=== PATIENT | female | born 1965 | race Two or more races ===

== ENCOUNTER 2024-10-13 17:43 | Emergency (ER) | payer BC, MEDICAID ==
[~2024-10-13] VITALS: Ht 162.6 cm; Wt 103.8 kg
--- NOTE | 2024-10-13 19:47 | DVH ---
INDICATION: Back pain COMPARISON: None TECHNIQUE: 2 views of the thoracic spine were obtained. FINDINGS: There are 12 rib-bearing thoracic type vertebral bodies. The pedicles are intact. The vertebral body heights are maintained. No acute fracture. Visualized portions of the lungs are clear. Cholecystect tiffanie clips are seen. IMPRESSION: 1. No acute fracture or traumatic malalignment.
[2024-10-13] MEDS: KETOROLAC TROMETH 60MG/2ML VIAL IM ONE (19:58)
--- NOTE | 2024-10-13 20:05 | ED.PDOC ---
Back pain HPI HPI Comments This is a 59 year-old female who presents to the ED with a chief complaint of back pain to the R lumbar region as of months ago. Patient states the back pain is constant and radiates to the right chest. Patient additionally reports that the back pain is exacerbated with R shoulder movement. Patient reports having a torn rotator cuff at the R shoulder region. Patient denies any previous trauma or injury to the back area. Patient has no further complaints at this time and otherwise denies further associated symptoms of N/V/D, dysuria, hematuria, palpitations, fever, chills, or dizziness. Chief Complaint: Back Pain Time Seen by MD: 19:53 Primary Care Provider: ARPITA Rodriguez Notes: Nurses Notes, Medications, Allergies Allergies: Coded Allergies: NO KNOWN ALLERGIES (Unverified , 06/14/10) Information Source: Patient Mode of Arrival: Ambulatory Timing: Months Duration: Since onset Location of Back pain: (R) Lumbar Severity: Moderate Prehospital treatment: None Onset: Spontaneous Associated signs and symptoms: Other (back pain and chest pain ) Past Medical History PAST MEDICAL HISTORY: Denies Surgical History: Denies all surgeries COMMUNITY HEALTH COUNSELOR History: No Pertinent COMMUNITY HEALTH COUNSELOR History Family History Family History: Reviewed,noncontributory to illness, No family hx of Cancer, No family hx of DM, No family hx of Heart wan, No family hx of HTN, No family hx ofKidney wan, No family hx of Liver wan, No family hx of Lung wan, No family hx of Stroke Social History Smoker: Non-Smoker Alcohol: Occasionally Drugs: Denies Drug Use Lives In: Home Constitutional: denies: chills, diaphoresis, fatigue, fever, malaise, sweats, weakness, others EENTM: denies: blurred vision, double vision, ear bleeding, ear discharge, ear drainage, ear pain, ear ringing, eye pain, eye redness, hearing loss, mouth pain, mouth swelling, nasal discharge, nose bleeding, nose congestion, nose pain, photophobia, tearing, throat pain, throat swelling, voice changes, others Respiratory: denies: cough, hemoptysis, orthopnea, SOB at rest, shortness of breath, SOB with excertion, stridor, wheezing, others Cardiovascular: reports: chest pain; denies: dizzy spells, diaphoresis, Dyspnea on exertion, edema, irregular heart beat, left arm pain, lightheadedness, palpitations, PND, syncope, others Gastrointestinal: denies: abdomen distended, abdominal pain, blood streaked bowels, constipated, diarrhea, dysphagia, difficulty swallowing, hematemesis, melena, nausea, poor appetite, poor fluid intake, rectal bleeding, rectal pain, vomiting, others Genitourinary: denies: abnormal vagina bleeding, burning, dyspareunia, dysuria, flank pain, frequency, hematuria, incontinence, pain, , vagina discharge, urgency, others Neurological: denies: dizziness, fainting, headache, left sided numbness, left sided weakness, numbness, paresthesia, pre-existing deficit, right sided numbness, right sided weakness, seizure, speech problems, tingling, tremors, weakness, others Musculoskeletal: reports: back pain; denies: gout, joint pain, joint swelling, muscle pain, muscle stiffness, neck pain, others Integumetry: denies: bruises, change in color, change in hair/nails, dryness, laceration, lesions, lumps, rash, wounds, others Allergic/Immunocompromised: denies: Difficulty Healing, Frequent Infections, Hives, Itching, others Hematologic/Lymphatic: denies: anemia, blood clots, easy bleeding, easy bruising, swollen glands, others Endocrine: denies: excessive hunger, excessive sweating, excessive thirst, excessive urination, flushing, intolerance to cold, intolerance to heat, unexplained weight gain, unexplained weight loss, others Psychiatric: denies: anxiety, bipolar disorder, depression, hopeless, panic disorder, schizophrenia, sleepless, suicidal, others All Other Systems: Reviewed and Negative Was a procedure done? Was a procedure done?: No Back Pain Differential Dx Differential Diagnosis: Fracture, Musculoskeletal Pain X-Ray, Labs, Meds, VS Vital Signs Date Time Temp Pulse Resp B/P (MAP) Pulse Ox O2 Delivery O2 Flow Rate FiO2 10/13/24 17:45 98.9 90 19 133/72 97 98.9 Current Medications Medications (Trade) Dose Ordered Sig/Crystal Route Start Time Stop Time Status Last Admin Ketorolac Tromethamine (Toradol Injection) 60 mg ONCE ONCE IM 10/13/24 19:30 10/13/24 19:31 DC 10/13/24 19:[address] [address] Ph: [phone] DIAGNOSTIC IMAGING Diagnostic Imaging Report : [id number] Signed PATIENT: HUSSEIN BOURGEOISCCT: [id number] UNIT: [id number] : 1965 LOC: ER ROOM / BED: / AGE / SEX: 59 / F ADM STATUS: REG ER SERVICE 1823 ORDERING PHYSICIAN: STEFANY RUSSO PROCEDURE(s): THOSP - SPINE THORACIC 2VIEW REASON: pain ORDER NUMBER(s): [id number], ACCESSION NUMBER(s): [id number] INDICATION: Back pain COMPARISON: None TECHNIQUE: 2 views of the thoracic spine were obtained. FINDINGS: There are 12 rib-bearing thoracic type vertebral bodies. The pedicles are intact. The vertebral body heights are maintained. No acute fracture. Visualized portions of the lungs are clear. Cholecystectomy clips are seen. IMPRESSION: 1. No acute fracture or traumatic malalignment. Images Reviewed?: Images reviewed and evaluated by me Time of 1ST Reevaluation: 20:38 Reevaluation 1ST: Unchanged Time of 2ND Reevaluation: 20:43 Reevaluation 2ND: Improved Patient Education/Counseling: Diagnosis, Treatment, Need For Follow Up Family Education/Counseling: No Family Present Medical Screening: No EMC Exist At This Time SEPSIS Sepsis Screen Date sepsis recognized/suspect: Oct 13, 2024 Time Sepsis recognized/suspect: 1744 Recent Procedure: No On Antibiotic Therapy: No Respiratory Rate >20: No Heart Rate >90: No Temp<36 C (96.8 F) or >38.3 C: No SBP <90 or MAP <65 mmHG: No New Acute Mental Status Change: No Is the patient on CPAP, BIPAP,: No Physician Orders Spine Thoracic 2view (10/13/24 18:23) Chest Two Views Routine (10/13/24 19:03) Vital Signs Date Time Temp Pulse Resp B/P (MAP) Pulse Ox O2 Delivery O2 Flow Rate FiO2 10/13/24 17:45 98.9 90 19 133/72 97 98.9 Medications Medications Dose Ordered Sig/Crystal Route Start Time Stop Time Status Last Admin Dose Admin Ketorolac Tromethamine 60 mg ONCE ONCE IM 10/13/24 19:30 10/13/24 19:31 DC 10/13/24 19:58 Departure 1 Departure Time of Disposition: 20:41 Impression: Primary Impression: Thoracic myofascial strain Qualified Codes: S29.019A - Strain of muscle and tendon of unspecified wall of thorax, initial encounter Disposition: HOME / SELF CARE / HOMELESS Condition: Stable e-Prescriptions Methylprednisolone (Medrol Dosepak) 4 Mg Jose 4 MG PO UD for 6 Days, #21 TAB UAD Prov: ZENOBIA RUSSOTeresa OROZCO 10/13/24 Tizanidine Hydrochloride (Tizanidine Hcl) 4 Mg Tab 4 MG PO TID PRN for 5 Days, #15 TAB Prov: STEFANY RUSSO 10/13/24 Discharged With: Self Critical Care Note Critical Care Time?: No Stability Stability form required: No Heart Score Heart Score: Heart Score Response (Comments) Value History N/A 0 EKG N/A 0 Age N/A 0 Risk Factors N/A 0 Troponin N/A 0 Total 0 I personally scribed for ER ([email or web address]) on 10/13/24 at 20:04. Electronically submitted by Cynthia Adamson ([employer]). I personally scribed for ER ([email or web address]) on 10/13/24 at 20:05. Electronically submitted by Cynthia Adamson ([employer]). ER Oct 13, 2024 20:04 STEFANY RUSSO [facility] Oct 13, 2024 20:44
--- NOTE | 2024-10-13 20:10 | DVH ---
XY CHEST TWO VIEWS ROUTINE CLINICAL HISTORY: LEFT CHEST PAIN AROUND TO BACK COMPARISON: None TECHNIQUE: Frontal and lateral view of the chest was obtained FINDINGS: Lines and Tubes: None Lungs: Patchy hazy opacification of the right lateral upper to mid lung zone. Pleura: No effusion. No pneumothorax. Cardiomediastinal contours: Unremarkable Bones: No acute osseous abnormality. IMPRESSION: Patchy hazy opacification of the right lateral upper to mid lung zone which may represent pneumonia i n the right clinical setting. Follow-up to resolution is recommended to exclude a mass.
[2024-10-13 20:43] VITALS: BP 122/62; PULSE 73; RESP 16; TEMP 97.9; O2SAT 97
[2024-10-13] MEDS ORDERED: TIZA-142 PO (20:43)
[2024-10-13] MEDS ORDERED: METH4PAK PO (20:43)
== END 2024-10-13 21:05 | disposition home or self-care (01) ==
LOC: ER 17:43
DX: S29.012A Strain of muscle and tendon of back wall of thorax, initial encounter (principal); F10.90 Alcohol use, unspecified, uncomplicated; X58.XXXA Exposure to other specified factors, initial encounter; Y93.89 Activity, other specified; Y92.89 Other specified places as the place of occurrence of the external cause; Y99.8 Other external cause status; Y90.9 Presence of alcohol in blood, level not specified
CPT/HCPCS: 71046; 72070; 96372; 99284; J1885

== ENCOUNTER 2024-10-27 15:54 | Inpatient (IN) | payer MEDICAID ==
[~2024-10-27] VITALS: Ht 172.7 cm; Wt 111.6 kg
--- NOTE | 2024-10-27 16:50 | DVH ---
CHEST RADIOGRAPH Indication: sob Technique: Single frontal view of the chest was obtained Comparison: XY CHEST TWO VIEWS ROUTINE on DOS: 10/13/24 FINDINGS: Lines and Tubes: None Lungs: Development of bibasilar areas of atelectasis are noted when compared to 10/13/2024. Pleura: No effusion. No pneumothorax. Cardiomediastinal contours: Unremarkable Bones: No acute osseous abnormality. IMPRESSION: 1. Development of bibasilar areas of atelectasis are noted when compared to
[2024-10-27] MEDS: IPRATROPIUM BROM 0.5 MG/2.5ML INH SOL NEB ONE (17:00)
[2024-10-27] MEDS: ALBUTEROL SULF 2.5 MG/0.5ML(0.5%) NEB SOLN NEB ONE (17:00)
--- NOTE | 2024-10-27 17:13 | ED.PDOC ---
SOB-HPI HPI Comments 59y F with a history of asthma presents to the ED for chief complaint of shortness of breath. Pt states she was at 2 weeks ago for similar complaint, underwent chest x-ray and was diagnosed with thoracic back strain. Pt states she saw PCP recently, had repeat chest x-ray, was diagnosed with pneumonia, and was prescribed Keflex. She was also recently prescribed clindamycin after undergoing a dental procedure. She states she is still taking both antibiotics, however has continued to have cough, shortness of breath and thoracic pain with inspiration and came to the ED for further evaluation. Patient was noted to be hypoxic on room air at triage and was placed on nasal cannula oxygen, with otherwise stable vitals including temp of 98.1 F, heart rate 98, rr 20, and BP of 137/78. Chief Complaint: Shortness of Breath Time Seen by MD: 17:43 Primary Care Provider: ARPITA Rodriguez notes: Medications, Allergies Information Source: Patient Mode of Arrival: Ambulatory Brought in by: self Past Medical History PAST MEDICAL HISTORY: Asthma Surgical History (Other): Tibial surgery LICENSED OCCUPATIONAL THERAPIST History: No Pertinent LICENSED OCCUPATIONAL THERAPIST History Family History Family History: Reviewed,noncontributory to illness, No family hx of Cancer, No family hx of DM, No family hx of Heart wan, No family hx of HTN, No family hx ofKidney wan, No family hx of Liver wan, No family hx of Lung wan, No family hx of Stroke Social History Smoker: Non-Smoker Alcohol: Occasionally Drugs: Denies Drug Use Lives In: Home All Other Systems: Reviewed and Negative (see HPI) Physical Exam General Appearance: Mild Distress HEENT: Other (Pupils and face symmetric. Moist mucous membranes.) Neck: Full Range of Motion, Normal Inspection Respiratory: Decreased Breath Sounds, No Accessory Muscle Use, Respiratory Distress, Other (Becomes short of breath with speaking) Cardiovascular: No Edema, No JVD, Regular Rate/Rhythm Breast Exam: Deferred Gastrointestinal: Non Tender, Soft Genitalia: Deferred Pelvic: Deferred Rectal: Deferred Extremities: Normal inspection, Normal range of motion, Non-tender, No pedal edema Neurologic: Alert (Oriented x4), Normal Affect, Normal Mood, Other (Ambulatory) Cerebellar Function: NOT DONE Reflexes: NOT DONE Skin: Dry, Pallor, Warm Lymphatic: NOT DONE Was a procedure done? Was a procedure done?: No Differential Dx Differential Diagnosis: Asthma, Bronchitis, CHF, COPD, Myocardial infarction, Pneumonia, Pulmonary Embolism, Respiratory Distress, URI Comments influenza A and B, COVID, X-Ray, Labs, Meds, VS Vital Signs Date Time Temp Pulse Resp B/P (MAP) Pulse Ox O2 Delivery O2 Flow Rate FiO2 10/27/24 17:38 20 92 Nasal Cannula* 2 28 10/27/24 16:05 98.1 98 20 137/78 92 98.1 Lab Test 10/27/24 18:59 10/27/24 17:39 Range/Units Troponin I High Sensitivity < 3 L < 3 L </=34 ng/L White Blood Count 12.8 H 4.4-10.8 10^3/uL Red Blood Count 3.99 L 4.0-5.20 10^6/uL Hemoglobin 11.9 L 12.2-16.2 g/dL Hematocrit 35.9 L 36.0-46.0 % Mean Corpuscular Volume 90.0 80.0-100.0 fL Mean Corpuscular Hemoglobin 29.7 28.0-32.0 pg Mean Corpuscular Hemoglobin Concent 33.0 32.0-36.0 g/dL Red Cell Distribution Width 13.2 11.8-14.3 % Platelet Count 439 140-450 10^3/uL Mean Platelet Volume 8.3 6.9-10.8 fL Neutrophils (%) (Auto) 83.5 H 37.0-80.0 % Lymphocytes (%) (Auto) 8.6 L 10.0-50.0 % Monocytes (%) (Auto) 6.3 0.0-12.0 % Eosinophils (%) (Auto) 1.0 0.0-7.0 % Basophils (%) (Auto) 0.6 0.0-2.0 % Neutrophils # (Auto) 10.7 H 1.6-8.6 10 ^3/uL Lymphocytes # (Auto) 1.1 0.4-5.4 10 ^3/uL Monocytes # (Auto) 0.8 0-1.3 10 ^3/uL Eosinophils # (Auto) 0.1 0-0.8 10 ^3/uL Basophils # (Auto) 0.1 0-0.2 10 ^3/uL Nucleated Red Blood Cells 0.0 % D-Dimer, Quantitative 2.11 H 0.0-0.49 mg/L FEU Sodium Level 136 136-145 mmol/L Potassium Level 4.0 3.5-5.1 mmol/L Chloride Level 101 98-107 mmol/L Carbon Dioxide Level 23 20-31 mmol/L Anion Gap 12 5-15 Blood Urea Nitrogen 7 L 9-23 mg/dL Creatinine 0.73 0.550-1.02 mg/dL Glomerular Filtration Rate Calc 96 >90 mL/min BUN/Creatinine Ratio 9.6 L 10.0-20.0 Serum Glucose 125 H 74-106 mg/dL Lactic Acid Level 1.1 0.4-2.0 mmol/L Calcium Level 9.4 8.7-10.4 mg/dL B-Type Natriuretic Peptide 14.43 0-100 pg/mL Current Medications Medications (Trade) Dose Ordered Sig/Crystal Route Start Time Stop Time Status Last Admin Methylprednisolone Sodium Succinate (Solu Medrol) 125 mg ONCE ONCE IV 10/27/24 17:00 10/27/24 17:19 DC 10/27/24 20:12 Levofloxacin/ Dextrose 100 ml @ 100 mls/hr ONCE ONCE IV 10/27/24 17:00 10/27/24 17:59 DC 10/27/24 20:12 [place] [address] Ph: [phone] DIAGNOSTIC IMAGING Diagnostic Imaging Report : [id number] Signed PATIENT: HUSSEIN BOURGEOISCCT: [id number] UNIT: [id number] : 1965 LOC: ER ROOM / BED: / AGE / SEX: 59 / F ADM STATUS: REG ER SERVICE 1610 ORDERING PHYSICIAN: ANN DOOLEY MD PROCEDURE(s): CXRP - CHEST PORTABLE REASON: sob ORDER NUMBER(s): [id number], ACCESSION NUMBER(s): [id number] CHEST RADIOGRAPH Indication: sob Technique: Single frontal view of the chest was obtained Comparison: XY CHEST TWO VIEWS ROUTINE on DOS: 10/13/24 FINDINGS: Lines and Tubes: None Lungs: Development of bibasilar areas of atelectasis are noted when compared to 10/13/2024. Pleura: No effusion. No pneumothorax. Cardiomediastinal contours: Unremarkable Bones: No acute osseous abnormality. IMPRESSION: 1. Development of bibasilar areas of atelectasis are noted when compared to ATED BY: CHRISTOPHER DEE Jr., DO DICTATED DATE/TIME: 10/27/241647 SIGNED BY: CHRISTOPHER DEE Jr., SIGNED DATE/TIME: 10/27/241647 CC: X-Ray, Labs, Meds, VS Comment 59-year-old female with a history of asthma complaining of cough, pleuritic thoracic pain and shortness a breath despite taking to oral antibiotics and using her inhaler at home Vitals remarkable for hypoxia-92% on 2 L nasal cannula Rhythm strip independently interpreted by me: Sinus rhythm, rate 88, no ectopy. Chest x-ray shows bibasilar atelectasis CT angio chest results pending CBC remarkable for WBC 12.8, basic metabolic panel, lactate, BNP, troponin unremarkable. D-dimer elevated at 2.11 Patient treated with the following in the ED: Albuterol 5 mg/Atrovent 0.5 mg nebulized, Solu-Medrol 125 mg IV, Levaquin 500 mg IV. On re-evaluation, patient states she feels somewhat better. Oxygen saturation is 92% on 2 L nasal cannula and she does not appear to be in respiratory distress. Plan is to admit the patient for respiratory support and IV antibiotics, and anticoagulation versus thrombectomy if CT positive for PE. Time of 1ST Reevaluation: 20:58 Reevaluation 1ST: Improved Patient Education/Counseling: Diagnosis, Treatment Family Education/Counseling: No Family Present SEPSIS Sepsis Screen Date sepsis recognized/suspect: Oct 27, 2024 Time Sepsis recognized/suspect: 1550 Recent Procedure: No On Antibiotic Therapy: No Respiratory Rate >20: No Heart Rate >90: Yes Temp<36 C (96.8 F) or >38.3 C: No SBP <90 or MAP <65 mmHG: No New Acute Mental Status Change: No Is the patient on CPAP, BIPAP,: No SEPSIS EXCLUSION NOTE: Sepsis Exclusion Note: Patient presents with SIRS criteria, but the SIRS response is attributed to [respiratory failure/asthma exacerbation ], not sepsis. Sepsis bundle is not initiated at this time, due to this reason. Further management will focus on the treatment of the above condition (s). Physician Orders Chest Portable (10/27/24 16:10) Urinalysis (10/27/24 16:10) Electrocardigram (10/27/24 16:10) Blood Culture (10/27/24 16:10) Rapid Influenza A&B (10/27/24 16:10) Rapid Strep Screen - Throat (10/27/24 16:10) Covid19 Antigen Sandra (10/27/24 ) Ct Angio Chest Contrast (10/27/24 20:55) Vital Signs Date Time Temp Pulse Resp B/P (MAP) Pulse Ox O2 Delivery O2 Flow Rate FiO2 10/27/24 17:38 20 92 Nasal Cannula* 2 28 10/27/24 16:05 98.1 98 20 137/78 92 98.1 Laboratory Tests Test 10/27/24 17:39 Lactic Acid Level 1.1 mmol/L (0.4-2.0) White Blood Count 12.8 10^3/uL (4.4-10.8) H Medications Medications Dose Ordered Sig/Crystal Route Start Time Stop Time Status Last Admin Dose Admin Levofloxacin/ Dextrose 100 ml @ 100 mls/hr ONCE ONCE IV 10/27/24 17:00 10/27/24 17:59 DC 10/27/24 20:12 Methylprednisolone Sodium Succinate 125 mg ONCE ONCE IV 10/27/24 17:00 10/27/24 17:19 DC 10/27/24 20:12 Departure 1 Departure Time of Disposition: 20:59 Impression: Primary Impression: Acute hypoxic respiratory failure Additional Impressions: Asthma exacerbation Pneumonia Disposition: ADMITTED INPATIENT Admit to: Tele Condition: Guarded Critical Care Note Critical Care Time?: Yes (30 min-critical care time only) Critical care comment: Critical care time including multiple bedside re-evaluations, review of lab and imaging studies, and discussion of the case with the admitting provider. Patient is high risk for respiratory decompensation. Stability Stability form required: No Heart Score Heart Score: Heart Score Response (Comments) Value History N/A 0 EKG N/A 0 Age N/A 0 Risk Factors N/A 0 Troponin N/A 0 Total 0 I personally scribed for ANN DOOLEY MD ([email or web address]) on 10/27/24 at 17:13. Electronically submitted by Salazar Restrepo ([email or web address]). I personally scribed for ANN DOOLEY MD ([email or web address]) on 10/27/24 at 17:45. Electronically submitted by Salazar Restrepo ([facility]). ANN DOOLEY MD Oct 27, 2024 17:13
[2024-10-27 18:09] LABS: Hematocrit 35.9 % (36.0-46.0); Hemoglobin 11.9 g/dL (12.2-16.2); Mean Corpuscular Hemoglobin 29.7 pg (28.0-32.0); Mean Corpuscular Volume 90.0 fL (80.0-100.0); Nucleated Red Blood Cells % 0.0 %
[2024-10-27 18:22] LABS: Chloride 101 mmol/L (98-107); Potassium 4.0 mmol/L (3.5-5.1)
[2024-10-27 18:23] LABS: Anion Gap 12 (5-15); Calcium 9.4 mg/dL (8.7-10.4); Carbon Dioxide 23 mmol/L (20-31)
[2024-10-27 18:25] LABS: Sodium 136 mmol/L (136-145)
[2024-10-27 18:28] LABS: BUN/Creatinine Ratio 9.6 (10.0-20.0)
[2024-10-27 18:30] LABS: Blood Urea Nitrogen 7 mg/dL (9-23); Glucose 125 mg/dL (74-106)
[2024-10-27] MEDS: methylPREDNISolone SOD SUCC 125 MG/2 ML VL IV ONE (20:12)
[2024-10-27] MEDS: IOHEXOL 350 MG/ML 100ML IJ ONE (22:16)
--- NOTE | 2024-10-27 23:01 | DVH ---
CLINICAL HISTORY: Short of breath, hypoxic, elevated D-dimer, rule out PE TECHNIQUE: CT angiogram of the chest was performed with and without intravenous contrast. 3D reconst ructed MIP images were created and archived on the PACS system under concurrent radiologist supervisi on. This exam was performed according to our departmental dose optimization program. Up-to-date CT eq uipment and radiation dose reduction techniques are utilized as appropriate. CTDI 14.8 DLP 946.2 COMPARISON: None FINDINGS: Evaluation is limited due to artifact from patient arm positioning. Evaluations further limited due t o patient breathing artifact. There was adequate opacification of the pulmonary artery tree. There is no filling defect to suggest acute pulmonary embolism. The thoracic aorta is normal in course and caliber. There are [] atherosclerotic calcifications. The heart is normal in size. No pericardial effusion is seen. No enlarged mediastinal, hilar, or axillary lymph node is present. The central airways are patent. There is no bronchiectasis. There is no suspicious pulmonary nodule or area of consolidation. There is a 6.8 x 3.8 cm lytic destructive soft tissue mass inseparable from the posterior lateral rig ht fifth rib. This mass also slightly erodes the posterior lateral right 6th rib. This mass either or iginates from the bone or from the adjacent pleura. There is an associated trace right pleural effusi on. There are bands of right upper, middle, and lower lobe atelectasis. There is mild lingular atelec tasis. There is no left pleural effusion. The visualized upper abdomen demonstrates post cholycystectomy changes. IMPRESSION: Limited exam with no definite evidence for acute pulmonary embolism. 6.8 x 3.8 cm destructive lytic soft tissue mass centered at the posterolateral right fifth rib with s light involvement of the posterolateral right 6th rib. It is unclear whether this mass originates fro m the bone or the adjacent pleural cavity. Finding is highly concerning for a malignant process. Trace right pleural effusion.
[2024-10-28] VITALS (9 sets, daily range): BP systolic 113–141; BP diastolic 55–81; PULSE 80–96; RESP 16–20; TEMP 98–98.3; O2SAT 91–100
[2024-10-28] MEDS ORDERED: DOCUSATE SOD 100 MG CAP PO PRN (02:30)
[2024-10-28] MEDS ORDERED: ONDANSETRON HCL 4 MG/2 ML VIAL IV PRN (02:30)
[2024-10-28] MEDS ORDERED: SODIUM CHLORIDE 0.9% 500 ML IV ONE (02:45)
--- NOTE | 2024-10-28 03:01 | DVHHPRES ---
History of Present Illness Resident Creating Document: PREMA MERAZ RESIDENT History of Present Illness History of Present Illness (HPI): Iraida Kellogg is a 59-year-old female with a known history of hyperlipidemia who presented with complaints of persistent pain located on the back side of her chest, accompanied by shortness of breath that has been ongoing for the past two weeks. She reports that the shortness of breath initially began approximately six months ago, occurring intermittently during that time. The back pain is described as sharp in nature, rated 8 out of 10 in intensity, and radiates toward the sides. She notes that the pain worsens with breathing and movement but tends to subside when she is at rest. Due to the discomfort, she has been sleeping in an upright position to alleviate symptoms. Additionally, she recently experienced cellulitis in her mouth following an infection related to a dental bridge, which was removed one week ago. Past Medical History (PMH): Hyperlipidemia Past Surgical History (PSH): Tibial fracture surgery Family history (FH): No relevant family history EtOH: Occasional alcohol use Smoking /Vaping: Patient denies smoking Recreational Drugs: Denies recreational drug use Residence: Lives with family Home Medications: Lipitor, cephalexin, clindamycin Allergies: No known allergies PCP: Dr. Segovia Specialist relevant to admission: Nonrelevant Review of Systems Review of Systems General: patient denies fever, fatigue, weaknes, sweating, any recent changes in appetite and weight HEENT: Complains of pain in the mouth Cardiovascular: Complains of chest and back pain, shortness of breath Respiratory: No cough, and wheezing. Gastrointestinal: Denies nausea, vomiting, dysphagia, odynophagia, heartburn, abdominal pain, flatulence, bloating, diarrhea, constipation, change in stool, or blood in stool. Genitourinary: No dysuria, hematuria, discharge, frequency, urgency, nocturia, incontinence, and urinary retention. Endocrine: No heat or cold intolerance, polydipsia, polyuria, and polyphagia. Neurological: No dizziness, extremity weakness and numbness, tremors, gait disturbance, seizures, and memory impairment. Psychiatric: Denies depression, anxiety,or insomnia. Musculoskeletal: Denies neck pain, stiffness and swelling, back pain, muscle weakness, joint pain, stiffness, swelling, or limited range of motion. Skin: No rashes, itching, skin lesion, changes in hair, nail, skin texture and breast. Hematologic/Lymphatic: Denies easy bruising, bleeding tendencies, or lymph node enlargement. Allergies: Coded Allergies: NO KNOWN ALLERGIES (Unverified , 06/14/10) Medications Current Medications Medications Dose Ordered Sig/Crystal Route Start Time Stop Time Status Last Admin Dose Admin Ondansetron HCl 4 mg Q4HP PRN IV 10/28/24 02:30 Docusate Sodium 100 mg BIDPRN PRN PO 10/28/24 02:30 Atorvastatin Calcium 10 mg DAILY PO 10/28/24 10:00 Exam Vital Signs Vital Signs Date Time Temp Pulse Resp B/P (MAP) Pulse Ox O2 Delivery O2 Flow Rate FiO2 10/27/24 17:38 20 92 Nasal Cannula* 2 28 10/27/24 16:05 98.1 98 137/78 98.1 Exam General Appearance: Alert, Oriented X3, Cooperative, No acute distress HEENT: Sutures in the left upper molars Respiratory: Clear to auscultation, Normal air movement Cardiovascular: Regular rate, Normal S1, Normal S2, No murmurs, no chest wall tenderness Abdominal: Normal bowel sounds, Soft, No tenderness, No hepatospenomegaly, No masses Extremities: Tenderness in the shoulders and back Skin: No rashes, No breakdown, No significant lesion Neuro: Normal gait, Normal speech, Strength at 5/5 X4 ext, Normal tone, Sensation intact, Cranial nerves 3-12 NL, Reflexes 2+ Psych/Mental Status: Mental status NL, Mood NL Labs/Xrays Labs Test 10/27/24 18:59 10/27/24 17:39 Range/Units Troponin I High Sensitivity < 3 L </=34 ng/L White Blood Count 12.8 H 4.4-10.8 10^3/uL Red Blood Count 3.99 L 4.0-5.20 10^6/uL Hemoglobin 11.9 L 12.2-16.2 g/dL Hematocrit 35.9 L 36.0-46.0 % Mean Corpuscular Volume 90.0 80.0-100.0 fL Mean Corpuscular Hemoglobin 29.7 28.0-32.0 pg Mean Corpuscular Hemoglobin Concent 33.0 32.0-36.0 g/dL Red Cell Distribution Width 13.2 11.8-14.3 % Platelet Count 439 140-450 10^3/uL Mean Platelet Volume 8.3 6.9-10.8 fL Neutrophils (%) (Auto) 83.5 H 37.0-80.0 % Lymphocytes (%) (Auto) 8.6 L 10.0-50.0 % Monocytes (%) (Auto) 6.3 0.0-12.0 % Eosinophils (%) (Auto) 1.0 0.0-7.0 % Basophils (%) (Auto) 0.6 0.0-2.0 % Neutrophils # (Auto) 10.7 H 1.6-8.6 10 ^3/uL Lymphocytes # (Auto) 1.1 0.4-5.4 10 ^3/uL Monocytes # (Auto) 0.8 0-1.3 10 ^3/uL Eosinophils # (Auto) 0.1 0-0.8 10 ^3/uL Basophils # (Auto) 0.1 0-0.2 10 ^3/uL Nucleated Red Blood Cells 0.0 % D-Dimer, Quantitative 2.11 H 0.0-0.49 mg/L FEU Sodium Level 136 136-145 mmol/L Potassium Level 4.0 3.5-5.1 mmol/L Chloride Level 101 98-107 mmol/L Carbon Dioxide Level 23 20-31 mmol/L Anion Gap 12 5-15 Blood Urea Nitrogen 7 L 9-23 mg/dL Creatinine 0.73 0.550-1.02 mg/dL Glomerular Filtration Rate Calc 96 >90 mL/min BUN/Creatinine Ratio 9.6 L 10.0-20.0 Serum Glucose 125 H 74-106 mg/dL Lactic Acid Level 1.1 0.4-2.0 mmol/L Calcium Level 9.4 8.7-10.4 mg/dL B-Type Natriuretic Peptide 14.43 0-100 pg/mL SEPSIS Sepsis Screen Date sepsis recognized/suspect: Oct 27, 2024 Time Sepsis recognized/suspect: 1550 Recent Procedure: No On Antibiotic Therapy: No Respiratory Rate >20: No Heart Rate >90: Yes Temp<36 C (96.8 F) or >38.3 C: No SBP <90 or MAP <65 mmHG: No New Acute Mental Status Change: No Is the patient on CPAP, BIPAP,: No Physician Orders Ct Angio Chest Contrast (10/27/24 20:55) Admit (10/28/24 02:22) Allergies (10/28/24 02:22) Code Status (10/28/24 02:22) Ondansetron Hcl (Zofran) (10/28/24 02:30) Docusate Sodium Capsule (Colace Capsule) (10/28/24 02:30) Complete Blood Count (10/28/24 04:00) Comprehensive Metabolic Panel (10/28/24 04:00) Condition: Fair (10/28/24 02:22) Urine Bacterial Culture (10/28/24 02:32) Respiratory Culture W/ Gs (10/28/24 02:32) Sodium Chloride 0.9% (10/28/24 02:45) Wound Culture W/ Gs (10/28/24 02:36) * Wound Consult (10/28/24 ) Atorvastatin (Lipitor) (10/28/24 10:00) Laboratory Tests Test 10/27/24 17:39 Lactic Acid Level 1.1 mmol/L (0.4-2.0) White Blood Count 12.8 10^3/uL (4.4-10.8) H Medications Medications Dose Ordered Sig/Crystal Route Start Time Stop Time Status Last Admin Dose Admin Levofloxacin/ Dextrose 100 ml @ 100 mls/hr ONCE ONCE IV 10/27/24 17:00 10/27/24 17:59 DC 10/27/24 20:12 100 MLS/HR Methylprednisolone Sodium Succinate 125 mg ONCE ONCE IV 10/27/24 17:00 10/27/24 17:19 DC 10/27/24 20:12 125 MG Assessment/Plan Assessment/Plan Assessment and plan # Sepsis due to ? Obstructed pneumonia ? 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 - IV morphine - Pulmonology consult # Oral cellulitis - IV clindamycin - Wound consult, wound culture # Dyslipidemia - Continue Lipitor # Grade 1 obesity - Diet and exercise as tolerable PUD prophylaxis: not needed DVT prophylaxis: brisk movement. Barriers to discharge: Medical diagnosis and management in progress. Patient lives with family. Independent for ADL. PCP: Dr. Scales Specialist Relevant To Admission: Pulmonology Case discussed with Dr. Jeronimo. Code Status: Full Code. Complex patient care discussion needed. Spend total 39 minutes for bedside assessment, case discussion and management. Plan discussed with: Patient My Orders Orders - PREMA MERAZ Procedure Category Date Status Time Admit ADMIT 10/28/24 Transmitted 02:22 Allergies TYLER 10/28/24 In Process 02:22 Code Status CODE 10/28/24 Transmitted 02:22 Ondansetron Hcl PHA 10/28/24 In Process (Zofran) 02:30 Docusate Sodium PHA 10/28/24 In Process Capsule (Colace 02:30 Complete Blood Count LAB 10/28/24 Logged 04:00 Comprehensive LAB 10/28/24 Logged Metabolic Panel 04:00 Condition: Fair TYLER 10/28/24 In Process 02:22 Urine Bacterial LESLIE 10/28/24 Logged Culture 02:32 Respiratory Culture LESLIE 10/28/24 Logged W/ Gs 02:32 Sodium Chloride 0.9% PHA 10/28/24 In Process 02:45 Wound Culture W/ Gs LESLIE 10/28/24 Logged 02:36 * Wound Consult CONS 10/28/24 Transmitted Atorvastatin (Lipitor) PHA 10/28/24 In Process 10:00 Date of Service: Oct 28, 2024 Billing Provider: YANETH JERONIMO MD Common Visit Codes: 36529-[id number] INP/OBS CARE (HIGH) Secondary Visit Codes: 44609-[id number] CARE PLAN 30 MINUTES PREMA MERAZ RESIDENT Oct 28, 2024 03:01
[2024-10-28] MEDS: SODIUM CHLORIDE 0.9% 500 ML IV ONE (03:45)
[2024-10-28 04:16] LABS: Hematocrit 37.2 % (36.0-46.0); Hemoglobin 12.4 g/dL (12.2-16.2); Mean Corpuscular Hemoglobin 30.2 pg (28.0-32.0); Mean Corpuscular Volume 90.4 fL (80.0-100.0); Nucleated Red Blood Cells % 0.0 %
[2024-10-28 04:54] LABS: Alanine Aminotransferase 36 U/L (7-40); Albumin 4.4 g/dL (3.2-4.8); Anion Gap 11 (5-15); BUN/Creatinine Ratio 13.0 (10.0-20.0); Blood Urea Nitrogen 10 mg/dL (9-23); Calcium 9.6 mg/dL (8.7-10.4); Carbon Dioxide 23 mmol/L (20-31); Chloride 100 mmol/L (98-107); Potassium 4.2 mmol/L (3.5-5.1)
[2024-10-28 04:55] LABS: Bilirubin, Total 0.4 mg/dL (0.2-1.0)
[2024-10-28] MEDS: CLINDAMYCIN 900MG IV 50 ML IV SCH (05:06)
[2024-10-28 05:11] LABS: Alkaline Phosphatase 184 U/L (46-116); Glucose 239 mg/dL (74-106); Sodium 134 mmol/L (136-145); Total Protein 8.6 g/dL (5.7-8.2)
[2024-10-28] MEDS: MORPHINE SULFATE INJ 2 MG/ml SYRG IV ONE (05:15)
--- NOTE | 2024-10-28 08:02 | DVH ---
Bilateral lower extremity venous duplex Clinical History: elevated d dimer Comparison: None Findings: Duplex Doppler evaluation of the deep venous systems of both lower extremities from the common femora l veins to the popliteal veins including color Doppler and spectral/pulsed waveform analysis was perf ormed. RIGHT SIDE: The common femoral vein demonstrates appropriate compressibility and waveform variability. There is compressibility/patency of the great saphenous vein at the proximal thigh. The femoral vein demonstrates appropriate compressibility and waveform variability. The deep femoral vein demonstrates appropriate compressibility and waveform variability. The popliteal vein demonstrates appropriate compressibility and waveform variability. There is normal compressibility at the tibioperoneal trunk. LEFT SIDE: The common femoral vein demonstrates appropriate compressibility and waveform variability. There is compressibility/patency of the great saphenous vein at the proximal thigh. The femoral vein demonstrates appropriate compressibility and waveform variability. The deep femoral vein demonstrates appropriate compressibility and waveform variability. The popliteal vein demonstrates appropriate compressibility and waveform variability. There is normal compressibility at the tibioperoneal trunk. IMPRESSION: No right or left femoropopliteal venous thrombosis. If clinical concern/symptoms persist or worsen, short-interval follow-up study is suggested. END IMPRESSION:
[2024-10-28] MEDS: ENOXAPARIN SOD 40 MG/0.4 ML SYRINGE SC SCH (10:00)
[2024-10-28] MEDS: AZITHROMYCIN 500MG/ 250ML 250 ML IV SCH (10:00)
[2024-10-28] MEDS: ATORVASTATIN 20 MG TAB PO SCH (10:18)
[2024-10-28 12:40] LABS: Urine Protein, UAD TRACE (Negative)
[2024-10-28 13:31] LABS: Rapid Strep A Screen-Throat Negative
[2024-10-28 13:45] LABS: COVID19 ANTIGEN SOFIA FIA NEGATIVE (NEGATIVE)
--- NOTE | 2024-10-28 17:20 | DVHPNRES ---
Progress Note Date Seen: Oct 28, 2024 Resident Creating Document: HAM BECERRIL RESIDENT Medical Necessity Reason Pt with a Central, PICC or Fol: No Subjective Review of Systems Valdez Chaparro is a 59-year-old female with past medical history of hyperlipidemia who presented to the ED with a complaint of upper back pain radiating to the front of the chest. Patient mentions that she has had this pain for the last 2 weeks. Describes it as sharp, 9/10 in intensity and worsened with movement and deep breathing. Patient also has shortness of breath since 5-6 months. Patient mentions she was hospitalized 2 weeks ago for the same pain, was also diagnosed with pneumonia at that time. Also mentions she has a torn rotator cuff for which he is due for surgery once the pneumonia subsides. She recently had cellulitis in her upper jaw, infection related to a dental bridge which was removed one week back, for which she is currently on clindamycin. She also mentions she has been taking Ozempic since 1 month for borderline diabetes and has had decreased appetite with the same. She denies any fever chills or weight loss in the last few weeks. Past medical history: Hyperlipidemia Past surgical history: Tibial fracture surgery Medications: Lipitor, Keflex, clindamycin Social & Personal history: Lives with family Smoking: Denies Alcohol: Occasional use Drugs: Denies Allergies: No known allergies Patient seen and examined at bedside. Patient is alert and oriented to time, place person and responding to all questions. The patient is a distress and is taking shallow breaths because of the pain. Eyes: No Pain, No Vision change, No Conjunctivae inflammation, No Eyelid inflammation, No Redness ENT: No Ear pain, No Ear discharge, No Nose pain, No Nose discharge, No Nose congestion, No Mouth pain, No Mouth swelling, No Throat pain, No Throat swelling Cardiovascular: No Chest Pain, No Palpitations, No Orthopnea, No Paroxysmal No Dyspnea, No Edema, No Lt Headedness Respiratory: No Cough, No Dry, Shortness of breath, SOB with exertion, No Wheezing, No Hemoptysis, No Pleuritic Pain, No Sputum Gastrointestinal: No Nausea, No Vomiting, No Abdominal Pain, No Diarrhea, No Constipation, No Melena, No Hematochezia Genitourinary: No Dysuria, No Frequency, No Incontinence, No Hematuria, No Retention Objective vital signs Vital Sign Date Time Temp Pulse Resp B/P (MAP) Pulse Ox O2 Delivery O2 Flow Rate FiO2 10/28/24 12:54 18 95 Nasal Cannula* 3 32 10/28/24 12:44 98.5 80 125/63 (83) 98.5 Total Intake and Output 10/27/24 10/27/24 10/28/24 15:00 23:00 07:00 Intake Total 100 ml Balance 100 ml medications Current Medications Medications Dose Ordered Sig/Crystal Route Start Time Stop Time Status Last Admin Dose Admin Ondansetron HCl 4 mg Q4HP PRN IV 10/28/24 02:30 Docusate Sodium 100 mg BIDPRN PRN PO 10/28/24 02:30 Atorvastatin Calcium 10 mg DAILY PO 10/28/24 10:00 10/28/24 10:18 10 MG Clindamycin Phosphate 50 ml @ 50 mls/hr Q8HR IV 10/28/24 03:53 10/28/24 13:16 50 MLS/HR Azithromycin 250 ml @ 125 mls/hr DAILY IV 10/28/24 10:00 11/02/24 09:59 10/28/24 10:00 125 MLS/HR Ceftriaxone Sodium 50 ml @ 100 mls/hr DAILY@09 IV 10/28/24 09:00 10/28/24 10:05 100 MLS/HR Enoxaparin Sodium 40 mg DAILY SC 10/28/24 10:00 Morphine Sulfate 0.5 mg Q4HP PRN IV 10/28/24 05:30 Ipratropium [place] 0.5 mg Q6HPRN PRN NEB 10/28/24 10:30 Albuterol 2.5 mg Q6HPRN PRN NEB 10/28/24 10:30 Examination General Appearance: Alert, Oriented X3, Cooperative, No acute distress HEENT: Sutures in the left upper molars Respiratory: Clear to auscultation, decreased air entry bilaterally, mass with indistinct margins could be palpated in the midaxillary line on right side, 3 x 3 cm Cardiovascular: Regular rate, Normal S1, Normal S2, No murmurs, no chest wall tenderness Abdominal: Normal bowel sounds, Soft, No tenderness, No hepatospenomegaly, No masses Extremities: Tenderness in the shoulders and back Skin: No rashes, No breakdown, No significant lesion Neuro: Normal gait, Normal speech, Strength at 5/5 X4 ext, Normal tone, Sensation intact, Cranial nerves 3-12 NL, Reflexes 2+ Psych/Mental Status: Mental status NL, Mood NL laboratory and microbiology Laboratory Tests 10/28/24 04:02 Test 10/28/24 04:02 Range/Units Serum Glucose 239 H 74-106 mg/dL Labs and/or images reviewed: Labs reviewed by me, Image(s) reviewed by me Problem List/Assessment/Plan Problem List/Assessment/Plan Acute hypoxic respiratory failure ?Pleural/bone tumor Right pleural effusion atelectasis -currently on 2 L oxygen by nasal cannula -6.8 x 3.8 cm lytic destructive soft tissue mass inseparable from the posterior lateral right fifth rib. This mass also slightly erodes the posterior lateral right 6th rib. This mass either originates from the bone or from the adjacent pleura. There is an associated trace right pleural effusion. There are bands of right upper, middle, and lower lobe atelectasis. There is mild lingular atelectasis. -[id number] -pulmonology consulted -IR consulted for CT-guided biopsy Oral cellulitis -continue clindamycin Hyperlipidemia -continue Lipitor Obesity, class 1, BMI 33.6 -the patient educated on lifestyle modifications to lose weight PUD prophylaxis: Not indicated DVT prophylaxis: Not indicated Goals of care: Full code, discussed for >23 minutes Plan discussed with patient Plan discussed with Dr Kim Plan discussed with: Patient My Orders My Orders Orders - HAM BECERRIL Procedure Category Date Status Time *Consult CONS 10/28/24 Transmitted / 11:22 * Radiologist Consult CONS 10/28/24 Transmitted 11:22 Date of Service: Oct 28, 2024 Billing Provider: ABRAHAN KIM MD Common Visit Codes: [id number] INP/OBS CARE(HIGH) Secondary Visit Codes: [id number] CARE PLAN 30 MINUTES HAM BECERRIL Oct 28, 2024 17:20 ABRAHAN KIM MD Nov 06, 2024 21:38
[2024-10-28] MEDS: ALBUTEROL SULF 2.5 MG/0.5ML(0.5%) NEB SOLN NEB PRN (17:57)
[2024-10-28] MEDS: IPRATROPIUM BROM 0.5 MG/2.5ML INH SOL NEB PRN (17:58)
--- NOTE | 2024-10-28 20:50 | DVHINCON2 ---
Date Seen: Oct 28, [address] Edna Danielle Reason for Consultation Lung mass. History of Present Illness A 59-year-old woman with known past medical history of hyperlipidemia who presents to ED today with complaints of persistent pain located on the back side of her chest, accompanied by shortness of breath that has been ongoing for the past 2 weeks. She reports that the shortness of breath initially began approximately 6 months ago, occurring intermittently during that time. The back pain is described as sharp in nature, rated 8/10 in intensity and radiating toward the sides. Pain worsens with breathing and movement, but tends to subside when she is at rest. Due to the discomfort, she has been sleeping in an upright position to alleviate symptoms. Patient mentions she was hospitalized 2 weeks ago for the same pain, was also diagnosed with pneumonia at that time. Additionally, she recently experienced cellulitis in her mouth following an infection related to a dental bridge, which was removed 1 week ago. Patient was admitted for further care. Pulmonary consultation is requested for evaluation and management due to lung mass. Review of Systems: 14-point review of systems negative unless otherwise noted above. Past Medical History: Hyperlipidemia, Obesity Past Surgical History: Tibial fracture surgery Medications: Reviewed. Allergies: No known drug allergies. Family History: No family history of premature CAD. No family history of lung disorders. Social History: Nonsmoker. Occasional alcohol use. No illicit drug use. Allergies: Coded Allergies: NO KNOWN ALLERGIES (Unverified , 06/14/10) Home Meds Reported Medications Atorvastatin Calcium (Lipitor) 10 Mg Tab, 10 MG PO DAILY, TAB 10/29/24 Current Medications Current Medications Medications (Trade) Dose Ordered Sig/Crystal Route PRN Reason Start Time Stop Time Status Last Admin Ondansetron HCl (Zofran) 4 mg Q4HP PRN IV NAUSEA / VOMITING 10/28/24 02:30 Docusate Sodium (Colace Capsule) 100 mg BIDPRN PRN PO FOR CONSTIPATION 10/28/24 02:30 Atorvastatin Calcium (Lipitor) 10 mg DAILY PO 10/28/24 10:00 10/28/24 10:18 Clindamycin Phosphate 50 ml @ 50 mls/hr Q8HR IV 10/28/24 03:53 10/28/24 13:16 Azithromycin 250 ml @ 125 mls/hr DAILY IV 10/28/24 10:00 11/02/24 09:59 10/28/24 10:00 Ceftriaxone Sodium 50 ml @ 100 mls/hr DAILY@09 IV 10/28/24 09:00 10/28/24 10:05 Enoxaparin Sodium (Lovenox) 40 mg DAILY SC 10/28/24 10:00 Morphine Sulfate 0.5 mg Q4HP PRN IV SEVERE PAIN (7-10 PAIN SCALE) 10/28/24 05:30 Ipratropium [place] (Atrovent Medneb) 0.5 mg Q6HPRN PRN NEB SHORTNESS OF BREATH 10/28/24 10:30 10/28/24 17:58 Albuterol (Ventolin Medneb) 2.5 mg Q6HPRN PRN NEB SHORTNESS OF BREATH 10/28/24 10:30 10/28/24 17:57 Vital Signs Vital Signs Date Time Temp Pulse Resp B/P (MAP) Pulse Ox O2 Delivery O2 Flow Rate FiO2 10/28/24 18:08 82 18 100 10/28/24 18:05 98.0 141/79 (99) 98.0 10/28/24 17:58 Nasal Cannula* 2 28 Physical Exam Gen.: Patient lying in bed in no apparent distress. On supplemental oxygen. Head: Normocephalic, atraumatic. Eyes: EOMI/PERRLA. Ears: Normal hearing. Normal anatomy. Neck/trachea: Trachea midline, supple. Nose: Normal external anatomy. Mouth: Moist mucous membranes. Chest: Decreased air entry bilaterally. No wheezing or rhonchi. Cardiovascular: Positive S1, positive S2. Regular rate and rhythm. Abdomen: Positive bowel sounds in all 4 quadrants. Soft, non-tender, non- distended. : Deferred. Rectal: Deferred. Skin: Warm, dry. Intact. Extremities: 2+ radial pulses bilaterally. No lower extremity edema. Neuro: Awake, alert, oriented x3. No gross motor or sensory deficits. Cranial nerves II through XII intact. Gait not assessed. Labs/Diagnostic Data Labs Test 10/28/24 11:45 10/28/24 11:35 10/28/24 04:02 10/27/24 18:59 Range/Units Urine Color Yellow Yellow Urine Clarity Clear Clear Urine pH 6.0 5.0-9.0 Urine Specific [place] 1.044 H 1.001-1.035 Urine Protein Trace H Negative Urine Ketones Negative Negative Urine Blood Negative Negative /uL Urine Nitrite Negative Negative Urine Bilirubin Negative Negative Urine Urobilinogen Normal Negative mg/dL Urine Leukocyte Esterase Negative Negative /uL Urine RBC 1 0 - 4 /hpf Urine Microscopic WBC 4 0-5 /HPF Urine Squamous Epithelial Cells Few <5 /hpf Urine Bacteria None seen None Seen /hpf Urine Mucus Few None Seen Urine Glucose Normal Normal mg/dL Influenza Type A Antigen Negative Negative Influenza Type B Antigen Negative Negative SARS-CoV-2 Antigen (Rapid) Negative NEGATIVE Group A Streptococcus Rapid Negative White Blood Count 13.3 H 4.4-10.8 10^3/uL Red Blood Count 4.11 4.0-5.20 10^6/uL Hemoglobin 12.4 12.2-16.2 g/dL Hematocrit 37.2 36.0-46.0 % Mean Corpuscular Volume 90.4 80.0-100.0 fL Mean Corpuscular Hemoglobin 30.2 28.0-32.0 pg Mean Corpuscular Hemoglobin Concent 33.4 32.0-36.0 g/dL Red Cell Distribution Width 13.2 11.8-14.3 % Platelet Count 448 140-450 10^3/uL Mean Platelet Volume 8.1 6.9-10.8 fL Neutrophils (%) (Auto) 94.4 H 37.0-80.0 % Lymphocytes (%) (Auto) 4.7 L 10.0-50.0 % Monocytes (%) (Auto) 0.7 0.0-12.0 % Eosinophils (%) (Auto) 0.0 0.0-7.0 % Basophils (%) (Auto) 0.2 0.0-2.0 % Neutrophils # (Auto) 12.6 H 1.6-8.6 10 ^3/uL Lymphocytes # (Auto) 0.6 0.4-5.4 10 ^3/uL Monocytes # (Auto) 0.1 0-1.3 10 ^3/uL Eosinophils # (Auto) 0 0-0.8 10 ^3/uL Basophils # (Auto) 0 0-0.2 10 ^3/uL Nucleated Red Blood Cells 0.0 % Sodium Level 134 L 136-145 mmol/L Potassium Level 4.2 3.5-5.1 mmol/L Chloride Level 100 98-107 mmol/L Carbon Dioxide Level 23 20-31 mmol/L Anion Gap 11 5-15 Blood Urea Nitrogen 10 9-23 mg/dL Creatinine 0.77 0.550-1.02 mg/dL Glomerular Filtration Rate Calc 90 >90 mL/min BUN/Creatinine Ratio 13.0 10.0-20.0 Serum Glucose 239 H 74-106 mg/dL Lactic Acid Level 1.6 0.4-2.0 mmol/L Calcium Level 9.6 8.7-10.4 mg/dL Total Bilirubin 0.4 0.2-1.0 mg/dL Aspartate Amino Transferase (AST) 18 13-40 U/L Alanine Aminotransferase (ALT) 36 7-40 U/L Alkaline Phosphatase 184 H 46-116 U/L Total Protein 8.6 H 5.7-8.2 g/dL Albumin 4.4 3.2-4.8 g/dL Troponin I High Sensitivity < 3 L </=34 ng/L Test 10/27/24 17:39 Range/Units D-Dimer, Quantitative 2.11 H 0.0-0.49 mg/L FEU B-Type Natriuretic Peptide 14.43 0-100 pg/mL Microbiology Date/Time Source Procedure Growth Status 10/27/24 17:38 Blood Blood Culture - Preliminary NO GROWTH AFTER 24 HOURS OF INCUBATION. Resulted Assessment Impression: Acute hypoxic respiratory failure Lung mass, left lower lobe Right pleural effusion Atelectasis Sepsis Pneumonia Oral cellulitis Dyslipidemia Obesity, BMI 35.2 Plan: Supplemental oxygen Titrate to keep O2 sats above 92%. CT angio demonstrated 6.8 x 3.8 cm lytic destructive soft tissue mass inseparable from the posterior lateral right fifth rib. This mass also slightly erodes the posterior lateral right 6th rib. This mass either originates from the bone or from the adjacent pleura. There is an associated trace right pleural effusion. There are bands of right upper, middle, and lower lobe atelectasis. Mild lingular atelectasis. IV antibiotics Follow up cultures Bronchodilators Incentive spirometry for atelectasis Continue atorvastatin Pain control Avoid oversedation Wound care. Monitor renal function. Monitor electrolytes. Supplement as necessary. Monitor ins and outs. Diet and lifestyle modifications for weight reduction Obesity complicates all care DVT prophylaxis. Prognosis: Poor given patient's multiple co-morbidities. Rest of plan per hospitalist and other consultants. Thank you, Dr. Danielle, for allowing me to participate in this patient's care. Further recommendations will depend on the patient's clinical course. Please do not hesitate to contact me if you have any questions or concerns. This medical document was created using an electronic medical record system with [employer] dictation system. Although these documentations are being carefully reviewed, there may still be some phonetic and typographical changes. The errors are purely typographical, due to imperfection on the software program, and do not reflect any compromise in the patient's medical care. Plan discussed with: Patient, Other (RN/Dr. Danielle) Date of Service: Oct 28, 2024 Billing Provider: BERNARDO MAOR MD Common Visit Codes: [id number] INP/OBS CARE (HIGH) BERNARDO AMOR MD Oct 28, 2024 20:50
[2024-10-29] VITALS (11 sets, daily range): BP systolic 107–133; BP diastolic 61–79; PULSE 75–98; RESP 16–19; TEMP 97.8–98.6; O2SAT 92–97
[2024-10-29] MEDS ORDERED: ATOR10TA PO (03:39)
[2024-10-29 08:10] LABS: Hematocrit 33.9 % (36.0-46.0); Hemoglobin 11.2 g/dL (12.2-16.2); Mean Corpuscular Hemoglobin 29.8 pg (28.0-32.0); Mean Corpuscular Volume 89.7 fL (80.0-100.0); Nucleated Red Blood Cells % 0.0 %
[2024-10-29 08:18] LABS: Chloride 102 mmol/L (98-107); Potassium 4.1 mmol/L (3.5-5.1); Sodium 138 mmol/L (136-145)
[2024-10-29 08:19] LABS: Anion Gap 12 (5-15); Calcium 9.0 mg/dL (8.7-10.4); Carbon Dioxide 24 mmol/L (20-31)
[2024-10-29 08:24] LABS: BUN/Creatinine Ratio 14.9 (10.0-20.0); Blood Urea Nitrogen 11 mg/dL (9-23)
[2024-10-29 08:25] LABS: Glucose 152 mg/dL (74-106)
--- NOTE | 2024-10-29 13:31 | DVH ---
CT CHEST WITHOUT CONTRAST, HISTORY: RIB LESION BX PROCEDURE: Informed consent was obtained. The patient was placed prone on the CT scanner. A limited l ocalization CT scan of the chest was obtained. The skin overlying the lesion was prepped with chlorhe xidine which was allowed to dry and draped in sterile fashion. Time out was performed. The skin and s oft tissues were infiltrated with Xylocaine, and IV sedation was administered. With intermittent CT g uidance, a 17 gauge Temno outer coaxial guiding needle was advanced into the right 5th rib mass. The needle position was confirmed with CT scan. 2 core biopsies were obtained using Temno inner 18 gauge biopsy needle. The specimens were sent in formalin to pathology for analysis. The needle was withdr awn, and post procedural CT obtained through the biopsy region. No immediate complication was identif iedwas noted. DLP = 1257 mGy-cm. SEDATION: Dr. Gaby Barrios was personally responsible for the administration of moderate sedation during the procedure performed, including the use of an independent trained observer who had no other duties during the procedure. The drugs utilized were IV fentanyl and versed (see nursing log for details). The total time of supervision by the attending physician was approximately 30 minutes. FINDINGS: Limited CT scan demonstrates a lytic mass in the posterior right 5th rib with the biopsy ne edle within the margin of the lung mass. IMPRESSION/PLAN: CT guided right posterior 5th rib mass lesion biopsy. Pathology results pending.
--- NOTE | 2024-10-29 15:36 | DVHPNRES ---
Progress Note Date Seen: Oct 29, 2024 Resident Creating Document: HAM BECERRIL RESIDENT Medical Necessity Reason Pt with a Central, PICC or Fol: No Subjective Review of Systems Valdez Chaparro is a 59-year-old female with past medical history of hyperlipidemia who presented to the ED with a complaint of upper back pain radiating to the front of the chest. Patient mentions that she has had this pain for the last 2 weeks. Describes it as sharp, 9/10 in intensity and worsened with movement and deep breathing. Patient also has shortness of breath since 5-6 months. Patient mentions she was hospitalized 2 weeks ago for the same pain, was also diagnosed with pneumonia at that time. Also mentions she has a torn rotator cuff for which he is due for surgery once the pneumonia subsides. She recently had cellulitis in her upper jaw, infection related to a dental bridge which was removed one week back, for which she is currently on clindamycin. She also mentions she has been taking Ozempic since 1 month for borderline diabetes and has had decreased appetite with the same. She denies any fever chills or weight loss in the last few weeks. Past medical history: Hyperlipidemia Past surgical history: Tibial fracture surgery Medications: Lipitor, Keflex, clindamycin Social & Personal history: Lives with family Smoking: Denies Alcohol: Occasional use Drugs: Denies Allergies: No known allergies Patient seen and examined at bedside. Patient is alert and oriented to time, place person and responding to all questions. The patient is a distress and is taking shallow breaths because of the pain. Eyes: No Pain, No Vision change, No Conjunctivae inflammation, No Eyelid inflammation, No Redness ENT: No Ear pain, No Ear discharge, No Nose pain, No Nose discharge, No Nose congestion, No Mouth pain, No Mouth swelling, No Throat pain, No Throat swelling Cardiovascular: No Chest Pain, No Palpitations, No Orthopnea, No Paroxysmal No Dyspnea, No Edema, No Lt Headedness Respiratory: No Cough, No Dry, Shortness of breath, SOB with exertion, No Wheezing, No Hemoptysis, No Pleuritic Pain, No Sputum Gastrointestinal: No Nausea, No Vomiting, No Abdominal Pain, No Diarrhea, No Constipation, No Melena, No Hematochezia Genitourinary: No Dysuria, No Frequency, No Incontinence, No Hematuria, No Retention 10/29- the patient was seen at bedside today. Pulmonology saw the patient yesterday and recommended supplemental oxygen with titration to keep oxygen saturation about 92%, and also recommended incentive spirometry. He was also started on feel sensation with albuterol and ipratropium. White count today was 14.8. CT-guided biopsy was done and is pending biopsy results by pathology. Objective vital signs Vital Sign Date Time Temp Pulse Resp B/P (MAP) Pulse Ox O2 Delivery O2 Flow Rate FiO2 10/29/24 13:00 98.4 81 18 112/66 (81) 97 98.4 10/29/24 10:00 Nasal Cannula 3.0 10/29/24 10:00 32 Total Intake and Output 10/28/24 10/28/24 10/29/24 15:00 23:00 07:00 Intake Total 100 ml Balance 100 ml medications Current Medications Medications Dose Ordered Sig/Crystal Route Start Time Stop Time Status Last Admin Dose Admin Ondansetron HCl 4 mg Q4HP PRN IV 10/28/24 02:30 Docusate Sodium 100 mg BIDPRN PRN PO 10/28/24 02:30 Atorvastatin Calcium 10 mg DAILY PO 10/28/24 10:00 10/28/24 10:18 10 MG Clindamycin Phosphate 50 ml @ 50 mls/hr Q8HR IV 10/28/24 03:53 10/29/24 05:56 50 MLS/HR Azithromycin 250 ml @ 125 mls/hr DAILY IV 10/28/24 10:00 11/02/24 09:59 10/29/24 11:47 125 MLS/HR Ceftriaxone Sodium 50 ml @ 100 mls/hr DAILY@09 IV 10/28/24 09:00 10/29/24 11:11 100 MLS/HR Enoxaparin Sodium 40 mg DAILY SC 10/28/24 10:00 Morphine Sulfate 0.5 mg Q4HP PRN IV 10/28/24 05:30 Ipratropium [place] 0.5 mg Q6HPRN PRN NEB 10/28/24 10:30 10/28/24 17:58 0.5 MG Albuterol 2.5 mg Q6HPRN PRN NEB 10/28/24 10:30 10/28/24 17:57 2.5 MG Examination General Appearance: Alert, Oriented X3, Cooperative, No acute distress HEENT: Sutures in the left upper molars Respiratory: Clear to auscultation, decreased air entry bilaterally, mass with indistinct margins could be palpated in the midaxillary line on right side, 3 x 3 cm Cardiovascular: Regular rate, Normal S1, Normal S2, No murmurs, no chest wall tenderness Abdominal: Normal bowel sounds, Soft, No tenderness, No hepatospenomegaly, No masses Extremities: Tenderness in the shoulders and back Skin: No rashes, No breakdown, No significant lesion Neuro: Normal gait, Normal speech, Strength at 5/5 X4 ext, Normal tone, Sensation intact, Cranial nerves 3-12 NL, Reflexes 2+ Psych/Mental Status: Mental status NL, Mood NL laboratory and microbiology Laboratory Tests 10/29/24 07:27 Test 10/29/24 07:27 Range/Units Serum Glucose 152 H 74-106 mg/dL Microbiology Date/Time Source Procedure Growth Status 10/28/24 11:45 Voided Urine Urine Culture - Preliminary Resulted 10/28/24 11:35 Throat Nose/Throat Culture - Preliminary Resulted 10/28/24 02:36 Mouth Gram Stain - Final Resulted 10/28/24 02:36 Mouth Wound Culture - Preliminary Resulted 10/27/24 17:38 Blood Blood Culture - Preliminary NO GROWTH AFTER 24 HOURS OF INCUBATION. Resulted Labs and/or images reviewed: Labs reviewed by me, Image(s) reviewed by me Problem List/Assessment/Plan Problem List/Assessment/Plan Acute hypoxic respiratory failure ?Pleural/bone tumor Right pleural effusion atelectasis -currently on 2 L oxygen by nasal cannula -6.8 x 3.8 cm lytic destructive soft tissue mass inseparable from the posterior lateral right fifth rib. This mass also slightly erodes the posterior lateral right 6th rib. This mass either originates from the bone or from the adjacent pleura. There is an associated trace right pleural effusion. There are bands of right upper, middle, and lower lobe atelectasis. There is mild lingular atelectasis. -[id number] -pulmonology consulted -IR consulted for CT-guided biopsy Oral cellulitis -continue clindamycin Hyperlipidemia -continue Lipitor Obesity, class 1, BMI 33.6 -the patient educated on lifestyle modifications to lose weight PUD prophylaxis: Not indicated DVT prophylaxis: Not indicated Goals of care: Full code, discussed for >23 minutes Plan discussed with patient Plan discussed with Dr Kim Plan discussed with: Patient My Orders My Orders Orders - HAM BECERRIL Procedure Category Date Status Time Clear Liq Diet DIET 10/29/[address] Guid[address] For CT 10/29/24 Resulted Needle Placeme 12:[address] 10/29/24 Resulted 12:10 Incentive Spirometry ORDERS 10/29/24 Transmitted 14:50 Date of Service: Oct 29, 2024 Billing Provider: ABRAHAN KIM MD Common Visit Codes: [id number] INP/OBS CARE(HIGH) HAM BECERRIL RESIDENT Oct 29, 2024 15:36 ABRAHAN KIM MD Nov 06, 2024 21:38
[2024-10-29] MEDS: MORPHINE SULFATE INJ 2 MG/ml SYRG IV PRN (16:53)
--- NOTE | 2024-10-29 20:57 | DVHPN2 ---
Subjective DOS: 10/29/2024 Patient seen and examined at bedside. Remains on supplemental oxygen Overnight events reviewed. Changes from previous H/P or p: No Changes Objective Vitals Vital Signs Date Time Temp Pulse Resp B/P (MAP) Pulse Ox O2 Delivery O2 Flow Rate FiO2 10/29/24 20:45 97.8 86 16 120/69 (86) 96 97.8 10/29/24 10:00 Nasal Cannula 3.0 10/29/24 10:00 32 Intake/Output Intake and Output 10/29/24 07:00 Intake Total 100 ml Balance 100 ml Intake Oral 0 ml IV Total 100 ml General Appearance: Alert, Oriented X3, Cooperative, No acute distress HEENT: Atraumatic, PERRLA, EOMI Lungs: Clear to auscultation, Other (Decreased air entry bilaterally. No wheezing or rhonchi.) Cardiovascular: Regular rate, Normal S1, Normal S2 Abdomen: Normal bowel sounds, Soft, No tenderness Musculoskeletal: Normal sensory function, Normal motor function Extremities: No clubbing, No cyanosis, No edema Neuro: Normal gait, Normal speech, Strength at 5/5 X4 ext, Cranial nerves 3-12 NL Skin: No Breakdown, No Bruising, No Significant Lesion, No Cyanosis; Dry, I ntact; No Petechiae, No Rashes; Warm; No Wounds Psych/Mental Status: Mental status NL, Mood NL Medications Current Medications Medications Dose Ordered Sig/Crystal Route Start Time Stop Time Status Last Admin Dose Admin Ondansetron HCl 4 mg Q4HP PRN IV 10/28/24 02:30 Docusate Sodium 100 mg BIDPRN PRN PO 10/28/24 02:30 Atorvastatin Calcium 10 mg DAILY PO 10/28/24 10:00 10/28/24 10:18 10 MG Clindamycin Phosphate 50 ml @ 50 mls/hr Q8HR IV 10/28/24 03:53 10/29/24 16:00 50 MLS/HR Azithromycin 250 ml @ 125 mls/hr DAILY IV 10/28/24 10:00 11/02/24 09:59 10/29/24 11:47 125 MLS/HR Ceftriaxone Sodium 50 ml @ 100 mls/hr DAILY@09 IV 10/28/24 09:00 10/29/24 11:11 100 MLS/HR Enoxaparin Sodium 40 mg DAILY SC 10/28/24 10:00 Morphine Sulfate 0.5 mg Q4HP PRN IV 10/28/24 05:30 10/29/24 16:53 0.5 MG Ipratropium [place] 0.5 mg Q6HPRN PRN NEB 10/28/24 10:30 10/28/24 17:58 0.5 MG Albuterol 2.5 mg Q6HPRN PRN NEB 10/28/24 10:30 10/28/24 17:57 2.5 MG Laboratory Results Laboratory Tests 10/29/24 07:27 Chemistry Test 10/29/24 07:27 Calcium Level 9.0 mg/dL (8.7-10.4) Urinalysis Test 10/28/24 11:45 Urine Color Yellow (Yellow) Urine Clarity Clear (Clear) Urine pH 6.0 (5.0-9.0) Urine Specific [place] 1.044 (1.001-1.035) Urine Protein Trace (Negative) H Urine Ketones Negative (Negative) Urine Blood Negative /uL (Negative) Urine Nitrite Negative (Negative) Urine Bilirubin Negative (Negative) Urine Urobilinogen Normal mg/dL (Negative) Urine Leukocyte Esterase Negative /uL (Negative) Urine RBC 1 /hpf (0 - 4) Urine Microscopic WBC 4 /HPF (0-5) Urine Squamous Epithelial Cells Few /hpf (<5) Urine Bacteria None seen /hpf (None Seen) Urine Mucus Few (None Seen) Urine Glucose Normal mg/dL (Normal) Microbiology Microbiology Date/Time Source Procedure Growth Status 10/28/24 11:45 Voided Urine Urine Culture - Preliminary Resulted 10/28/24 11:35 Throat Nose/Throat Culture - Preliminary Resulted 10/28/24 02:36 Mouth Gram Stain - Final Resulted 10/28/24 02:36 Mouth Wound Culture - Preliminary Resulted 10/27/24 17:38 Blood Blood Culture - Preliminary NO GROWTH AFTER 48 HOURS OF INCUBATION. 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 Right pleural effusion Atelectasis Sepsis Pneumonia Oral cellulitis Dyslipidemia Obesity, BMI 35.2 Events: Remains on supplemental oxygen, 2 LPM NC Taper O2 as tolerated S/p IR needle biopsy of right lung (5th rib) mass. Pathology results pending. Continue antibiotics Monitor WBC - trended up to 14.8 Incentive spirometry Explained to patient the need for outpatient: 1. PET CT to rule out metastasis vs. CT imaging. 2. Oncology evaluation and management once biopsy results and markers are complete. 3. Bone scan. Recommend followup as outpatient in [facility], [address]. Labs and imaging reviewed. Rest of plan as noted below. Plan: Supplemental oxygen Titrate to keep O2 sats above 92%. CT angio demonstrated 6.8 x 3.8 cm lytic destructive soft tissue mass inseparable from the posterior lateral right fifth rib. This mass also slightly erodes the posterior lateral right 6th rib. This mass either originates from the bone or from the adjacent pleura. There is an associated trace right pleural effusion. There are bands of right upper, middle, and lower lobe atelectasis. Mild lingular atelectasis. IV antibiotics Follow up cultures Bronchodilators Incentive spirometry for atelectasis Continue atorvastatin Pain control Avoid oversedation Wound care. Monitor renal function. Monitor electrolytes. Supplement as necessary. Monitor ins and outs. Diet and lifestyle modifications for weight reduction Obesity complicates all care DVT prophylaxis. Prognosis: Poor given patient's multiple co-morbidities. Rest of plan per hospitalist and other consultants. Thank you, Dr. Danielle, for allowing me to participate in this patient's care. Further recommendations will depend on the patient's clinical course. Please do not hesitate to contact me if you have any questions or concerns. This medical document was created using an electronic medical record system with [employer] computer dictation system. Although these documentations are being carefully reviewed, there may still be some phonetic and typographical changes. The errors are purely typographical, due to imperfection on the software program, and do not reflect any compromise in the patient's medical care. Plan discussed with: Patient, Other (KRISTA Noe) Date of Service: Oct 29, 2024 Billing Provider: BERNARDO AMOR MD Common Visit Codes: [id number] INP/OBS CARE(HIGH) BERNARDO AMOR MD Oct 29, 2024 20:57
[2024-10-30] VITALS (9 sets, daily range): BP systolic 107–121; BP diastolic 66–72; PULSE 75–99; RESP 16–19; TEMP 96.6–98.7; O2SAT 95–98
[2024-10-30 07:21] LABS: Anion Gap 11 (5-15); Carbon Dioxide 26 mmol/L (20-31); Chloride 101 mmol/L (98-107); Potassium 3.8 mmol/L (3.5-5.1); Sodium 138 mmol/L (136-145)
[2024-10-30 07:22] LABS: Calcium 8.8 mg/dL (8.7-10.4)
[2024-10-30 07:27] LABS: BUN/Creatinine Ratio 13.1 (10.0-20.0)
[2024-10-30 07:28] LABS: Hematocrit 32.1 % (36.0-46.0); Hemoglobin 10.8 g/dL (12.2-16.2); Mean Corpuscular Hemoglobin 29.8 pg (28.0-32.0); Mean Corpuscular Volume 88.5 fL (80.0-100.0); Nucleated Red Blood Cells % 0.1 %
[2024-10-30 07:30] LABS: Blood Urea Nitrogen 8 mg/dL (9-23); Glucose 126 mg/dL (74-106)
--- NOTE | 2024-10-30 18:49 | DVHPNRES ---
Progress Note Date Seen: Oct 30, 2024 Resident Creating Document: HAM BECERRIL RESIDENT Medical Necessity Reason Pt with a Central, PICC or Fol: No Subjective Review of Systems Valdez Chaparro is a 59-year-old female with past medical history of hyperlipidemia who presented to the ED with a complaint of upper back pain radiating to the front of the chest. Patient mentions that she has had this pain for the last 2 weeks. Describes it as sharp, 9/10 in intensity and worsened with movement and deep breathing. Patient also has shortness of breath since 5-6 months. Patient mentions she was hospitalized 2 weeks ago for the same pain, was also diagnosed with pneumonia at that time. Also mentions she has a torn rotator cuff for which he is due for surgery once the pneumonia subsides. She recently had cellulitis in her upper jaw, infection related to a dental bridge which was removed one week back, for which she is currently on clindamycin. She also mentions she has been taking Ozempic since 1 month for borderline diabetes and has had decreased appetite with the same. She denies any fever chills or weight loss in the last few weeks. Past medical history: Hyperlipidemia Past surgical history: Tibial fracture surgery Medications: Lipitor, Keflex, clindamycin Social & Personal history: Lives with family Smoking: Denies Alcohol: Occasional use Drugs: Denies Allergies: No known allergies Patient seen and examined at bedside. Patient is alert and oriented to time, place person and responding to all questions. The patient is a distress and is taking shallow breaths because of the pain. Eyes: No Pain, No Vision change, No Conjunctivae inflammation, No Eyelid inflammation, No Redness ENT: No Ear pain, No Ear discharge, No Nose pain, No Nose discharge, No Nose congestion, No Mouth pain, No Mouth swelling, No Throat pain, No Throat swelling Cardiovascular: No Chest Pain, No Palpitations, No Orthopnea, No Paroxysmal No Dyspnea, No Edema, No Lt Headedness Respiratory: No Cough, No Dry, Shortness of breath, SOB with exertion, No Wheezing, No Hemoptysis, No Pleuritic Pain, No Sputum Gastrointestinal: No Nausea, No Vomiting, No Abdominal Pain, No Diarrhea, No Constipation, No Melena, No Hematochezia Genitourinary: No Dysuria, No Frequency, No Incontinence, No Hematuria, No Retention 10/29- the patient was seen at bedside today. Pulmonology saw the patient yesterday and recommended supplemental oxygen with titration to keep oxygen saturation about 92%, and also recommended incentive spirometry. She was also started on feel sensation with albuterol and ipratropium. White count today was 14.8. CT-guided biopsy was done and is pending biopsy results by pathology. 10/30- patient was seen at bedside today. She looked in distress and was taking rapid, shallow breaths. Incentive spirometry was ordered for the patient, along with regular nebulization by respiratory therapist. Possible discharge for tomorrow was discussed with the patient considering she remains stable for discharge. Objective vital signs Vital Sign Date Time Temp Pulse Resp B/P (MAP) Pulse Ox O2 Delivery O2 Flow Rate FiO2 10/30/24 17:00 98.6 99 18 121/67 (85) 95 98.6 10/30/24 10:00 Nasal Cannula 2.0 10/30/24 10:00 28 Total Intake and Output 10/29/24 10/29/24 10/30/24 15:00 23:00 07:00 Intake Total 850 ml 800 ml Output Total 2 ml Balance 848 ml 800 ml medications Current Medications Medications Dose Ordered Sig/Crystal Route Start Time Stop Time Status Last Admin Dose Admin Ondansetron HCl 4 mg Q4HP PRN IV 10/28/24 02:30 Docusate Sodium 100 mg BIDPRN PRN PO 10/28/24 02:30 Atorvastatin Calcium 10 mg DAILY PO 10/28/24 10:00 10/30/24 09:39 10 MG Clindamycin Phosphate 50 ml @ 50 mls/hr Q8HR IV 10/28/24 03:53 10/30/24 15:11 50 MLS/HR Azithromycin 250 ml @ 125 mls/hr DAILY IV 10/28/24 10:00 11/02/24 09:59 10/30/24 09:41 125 MLS/HR Ceftriaxone Sodium 50 ml @ 100 mls/hr DAILY@09 IV 10/28/24 09:00 10/30/24 09:41 100 MLS/HR Enoxaparin Sodium 40 mg DAILY SC 10/28/24 10:00 10/30/24 09:41 40 MG Morphine Sulfate 0.5 mg Q4HP PRN IV 10/28/24 05:30 10/29/24 16:53 0.5 MG Ipratropium [place] 0.5 mg Q6HPRN PRN NEB 10/28/24 10:30 10/28/24 17:58 0.5 MG Albuterol 2.5 mg Q6HPRN PRN NEB 10/28/24 10:30 10/28/24 17:57 2.5 MG Examination General Appearance: Alert, Oriented X3, Cooperative, HEENT: Sutures in the left upper molars Respiratory: Clear to auscultation, decreased air entry bilaterally, mass with indistinct margins could be palpated in the midaxillary line on right side, 3 x 3 cm,patient is in distress and is taking rapid shallow breaths. Cardiovascular: Regular rate, Normal S1, Normal S2, No murmurs, no chest wall tenderness Abdominal: Normal bowel sounds, Soft, No tenderness, No hepatospenomegaly, No masses Extremities: Tenderness in the shoulders and back Skin: No rashes, No breakdown, No significant lesion Neuro: Normal gait, Normal speech, Strength at 5/5 X4 ext, Normal tone, Sensation intact, Cranial nerves 3-12 NL, Reflexes 2+ Psych/Mental Status: Mental status NL, Mood NL laboratory and microbiology Laboratory Tests 10/30/24 06:30 Test 10/30/24 06:30 Range/Units Serum Glucose 126 H 74-106 mg/dL Microbiology Date/Time Source Procedure Growth Status 10/28/24 11:45 Voided Urine Urine Culture - Preliminary Resulted 10/28/24 11:35 Throat Nose/Throat Culture - Final Complete 10/28/24 02:36 Mouth Gram Stain - Final Resulted 10/28/24 02:36 Mouth Wound Culture - Preliminary Resulted 10/27/24 17:38 Blood Blood Culture - Preliminary NO GROWTH AFTER 48 HOURS OF INCUBATION. Resulted Labs and/or images reviewed: Labs reviewed by me, Image(s) reviewed by me Problem List/Assessment/Plan Problem List/Assessment/Plan Acute hypoxic respiratory failure ?Pleural/bone tumor Right pleural effusion atelectasis -currently on 2 L oxygen by nasal cannula -6.8 x 3.8 cm lytic destructive soft tissue mass inseparable from the posterior lateral right fifth rib. This mass also slightly erodes the posterior lateral right 6th rib. This mass either originates from the bone or from the adjacent pleura. There is an associated trace right pleural effusion. There are bands of right upper, middle, and lower lobe atelectasis. There is mild lingular atelectasis. -[id number] -pulmonology consulted -IR consulted for CT-guided biopsy Oral cellulitis -continue clindamycin Hyperlipidemia -continue Lipitor Obesity, class 1, BMI 33.6 -the patient educated on lifestyle modifications to lose weight PUD prophylaxis: Not indicated DVT prophylaxis: Not indicated Goals of care: Full code, discussed for >23 minutes Plan discussed with patient Plan discussed with Dr Kim Plan discussed with: Patient Date of Service: Oct 30, 2024 Billing Provider: ABRAHAN KIM MD Common Visit Codes: [id number] INP/OBS CARE(HIGH) HAM BECERRIL RESIDENT Oct 30, 2024 18:49 ABRAHAN KIM MD Nov 06, 2024 21:39
--- NOTE | 2024-10-30 20:44 | DVHPN2 ---
Subjective DOS: 10/30/2024 Patient seen and examined at bedside. Remains on supplemental oxygen Overnight events reviewed. Changes from previous H/P or p: No Changes Objective Vitals Vital Signs Date Time Temp Pulse Resp B/P (MAP) Pulse Ox O2 Delivery O2 Flow Rate FiO2 10/30/24 17:00 98.6 99 18 121/67 (85) 95 98.6 10/30/24 10:00 Nasal Cannula 2.0 10/30/24 10:00 28 Intake/Output Intake and Output 10/30/24 07:00 Intake Total 1650 ml Output Total 2 ml Balance 1648 ml Intake Oral 1550 ml IV Total 100 ml Output Urine/Stool Mix 2 ml # Voids 1 General Appearance: Alert, Oriented X3, Cooperative, No acute distress HEENT: Atraumatic, PERRLA, EOMI Lungs: Clear to auscultation, Other (Decreased air entry bilaterally. No wheezing or rhonchi.) Cardiovascular: Regular rate, Normal S1, Normal S2 Abdomen: Normal bowel sounds, Soft, No tenderness Musculoskeletal: Normal sensory function, Normal motor function Extremities: No clubbing, No cyanosis, No edema Neuro: Normal gait, Normal speech, Strength at 5/5 X4 ext, Cranial nerves 3-12 NL Skin: No Breakdown, No Bruising, No Significant Lesion, No Cyanosis; Dry, I ntact; No Petechiae, No Rashes; Warm; No Wounds Psych/Mental Status: Mental status NL, Mood NL Medications Current Medications Medications Dose Ordered Sig/Crystal Route Start Time Stop Time Status Last Admin Dose Admin Ondansetron HCl 4 mg Q4HP PRN IV 10/28/24 02:30 Docusate Sodium 100 mg BIDPRN PRN PO 10/28/24 02:30 Atorvastatin Calcium 10 mg DAILY PO 10/28/24 10:00 10/30/24 09:39 10 MG Clindamycin Phosphate 50 ml @ 50 mls/hr Q8HR IV 10/28/24 03:53 10/30/24 15:11 50 MLS/HR Azithromycin 250 ml @ 125 mls/hr DAILY IV 10/28/24 10:00 11/02/24 09:59 10/30/24 09:41 125 MLS/HR Ceftriaxone Sodium 50 ml @ 100 mls/hr DAILY@09 IV 10/28/24 09:00 10/30/24 09:41 100 MLS/HR Enoxaparin Sodium 40 mg DAILY SC 10/28/24 10:00 10/30/24 09:41 40 MG Morphine Sulfate 0.5 mg Q4HP PRN IV 10/28/24 05:30 10/29/24 16:53 0.5 MG Ipratropium [place] 0.5 mg Q6HPRN PRN NEB 10/28/24 10:30 10/28/24 17:58 0.5 MG Albuterol 2.5 mg Q6HPRN PRN NEB 10/28/24 10:30 10/28/24 17:57 2.5 MG Laboratory Results Laboratory Tests 10/30/24 06:30 Chemistry Test 10/30/24 06:30 Calcium Level 8.8 mg/dL (8.7-10.4) Urinalysis Test 10/28/24 11:45 Urine Color Yellow (Yellow) Urine Clarity Clear (Clear) Urine pH 6.0 (5.0-9.0) Urine Specific [place] 1.044 (1.001-1.035) Urine Protein Trace (Negative) H Urine Ketones Negative (Negative) Urine Blood Negative /uL (Negative) Urine Nitrite Negative (Negative) Urine Bilirubin Negative (Negative) Urine Urobilinogen Normal mg/dL (Negative) Urine Leukocyte Esterase Negative /uL (Negative) Urine RBC 1 /hpf (0 - 4) Urine Microscopic WBC 4 /HPF (0-5) Urine Squamous Epithelial Cells Few /hpf (<5) Urine Bacteria None seen /hpf (None Seen) Urine Mucus Few (None Seen) Urine Glucose Normal mg/dL (Normal) Microbiology Microbiology Date/Time Source Procedure Growth Status 10/28/24 11:45 Voided Urine Urine Culture - Preliminary Resulted 10/28/24 11:35 Throat Nose/Throat Culture - Final Complete 10/28/24 02:36 Mouth Gram Stain - Final Resulted 10/28/24 02:36 Mouth Wound Culture - Preliminary Resulted 10/27/24 17:38 Blood Blood Culture - Preliminary NO GROWTH AFTER 72 HOURS OF INCUBATION. 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 Right pleural effusion Atelectasis Sepsis Pneumonia Oral cellulitis Dyslipidemia Obesity, BMI 35.2 Events: Remains on supplemental oxygen, 3 LPM NC Taper O2 as tolerated S/p IR needle biopsy of right lung (5th rib) mass. Pathology results pending. Continue antibiotics WBC within normal limits at 10 K Blood cultures show no growth at 48 hours Urine cultures show no growth. Nares culture shows no Beta hemolytic Streptococcus. Incentive spirometry for atelectasis. Explained to patient the need for outpatient: 1. PET CT to rule out metastasis vs. CT imaging. 2. Oncology evaluation and management once biopsy results and markers are complete. 3. Bone scan. Recommend followup as outpatient in [facility], [address]. Labs and imaging reviewed. Rest of plan as noted below. Plan: Supplemental oxygen Titrate to keep O2 sats above 92%. CT angio demonstrated 6.8 x 3.8 cm lytic destructive soft tissue mass inseparable from the posterior lateral right fifth rib. This mass also slightly erodes the posterior lateral right 6th rib. This mass either originates from the bone or from the adjacent pleura. There is an associated trace right pleural effusion. There are bands of right upper, middle, and lower lobe atelectasis. Mild lingular atelectasis. IV antibiotics Follow up cultures Bronchodilators Incentive spirometry for atelectasis Continue atorvastatin Pain control Avoid oversedation Wound care. Monitor renal function. Monitor electrolytes. Supplement as necessary. Monitor ins and outs. Diet and lifestyle modifications for weight reduction Obesity complicates all care DVT prophylaxis. Prognosis: Poor given patient's multiple co-morbidities. Rest of plan per hospitalist and other consultants. Thank you, Dr. Danielle, for allowing me to participate in this patient's care. Further recommendations will depend on the patient's clinical course. Please do not hesitate to contact me if you have any questions or concerns. This medical document was created using an electronic medical record system with [employer] dictation system. Although these documentations are being carefully reviewed, there may still be some phonetic and typographical changes. The errors are purely typographical, due to imperfection on the software program, and do not reflect any compromise in the patient's medical care. Plan discussed with: Patient, Other (KRISTA Hardy) Date of Service: Oct 30, 2024 Billing Provider: BERNARDO AMOR MD Common Visit Codes: [id number] INP/OBS CARE(HIGH) BERNARDO AMOR MD Oct 30, 2024 20:44
[2024-10-31] VITALS (13 sets, daily range): BP systolic 99–120; BP diastolic 46–72; PULSE 76–86; RESP 18–22; TEMP 97.9–98.7; O2SAT 90–100
[2024-10-31 07:05] LABS: Hematocrit 31.1 % (36.0-46.0); Hemoglobin 10.2 g/dL (12.2-16.2); Mean Corpuscular Hemoglobin 28.8 pg (28.0-32.0); Mean Corpuscular Volume 87.9 fL (80.0-100.0); Nucleated Red Blood Cells % 0.2 %
[2024-10-31 07:18] LABS: Anion Gap 11 (5-15); Carbon Dioxide 25 mmol/L (20-31); Chloride 101 mmol/L (98-107); Potassium 3.9 mmol/L (3.5-5.1); Sodium 137 mmol/L (136-145)
[2024-10-31 07:23] LABS: Calcium 8.7 mg/dL (8.7-10.4)
[2024-10-31 07:25] LABS: BUN/Creatinine Ratio 9.7 (10.0-20.0)
[2024-10-31 07:27] LABS: Blood Urea Nitrogen 6 mg/dL (9-23); Glucose 140 mg/dL (74-106)
[2024-10-31] MEDS ORDERED: IBUPROFEN 600 MG TAB PO PRN (10:15)
--- NOTE | 2024-10-31 13:53 | DVHPNRES ---
Progress Note Date Seen: Oct 31, 2024 Resident Creating Document: HAM BECERRIL RESIDENT Medical Necessity Reason Pt with a Central, PICC or Fol: No Subjective Review of Systems Valdez Chaparro is a 59-year-old female with past medical history of hyperlipidemia who presented to the ED with a complaint of upper back pain radiating to the front of the chest. Patient mentions that she has had this pain for the last 2 weeks. Describes it as sharp, 9/10 in intensity and worsened with movement and deep breathing. Patient also has shortness of breath since 5-6 months. Patient mentions she was hospitalized 2 weeks ago for the same pain, was also diagnosed with pneumonia at that time. Also mentions she has a torn rotator cuff for which he is due for surgery once the pneumonia subsides. She recently had cellulitis in her upper jaw, infection related to a dental bridge which was removed one week back, for which she is currently on clindamycin. She also mentions she has been taking Ozempic since 1 month for borderline diabetes and has had decreased appetite with the same. She denies any fever chills or weight loss in the last few weeks. Past medical history: Hyperlipidemia Past surgical history: Tibial fracture surgery Medications: Lipitor, Keflex, clindamycin Social & Personal history: Lives with family Smoking: Denies Alcohol: Occasional use Drugs: Denies Allergies: No known allergies Patient seen and examined at bedside. Patient is alert and oriented to time, place person and responding to all questions. The patient is a distress and is taking shallow breaths because of the pain. Eyes: No Pain, No Vision change, No Conjunctivae inflammation, No Eyelid inflammation, No Redness ENT: No Ear pain, No Ear discharge, No Nose pain, No Nose discharge, No Nose congestion, No Mouth pain, No Mouth swelling, No Throat pain, No Throat swelling Cardiovascular: No Chest Pain, No Palpitations, No Orthopnea, No Paroxysmal No Dyspnea, No Edema, No Lt Headedness Respiratory: No Cough, No Dry, Shortness of breath, SOB with exertion, No Wheezing, No Hemoptysis, No Pleuritic Pain, No Sputum Gastrointestinal: No Nausea, No Vomiting, No Abdominal Pain, No Diarrhea, No Constipation, No Melena, No Hematochezia Genitourinary: No Dysuria, No Frequency, No Incontinence, No Hematuria, No Retention 10/29- the patient was seen at bedside today. Pulmonology saw the patient yesterday and recommended supplemental oxygen with titration to keep oxygen saturation about 92%, and also recommended incentive spirometry. She was also started on feel sensation with albuterol and ipratropium. White count today was 14.8. CT-guided biopsy was done and is pending biopsy results by pathology. 10/30- patient was seen at bedside today. She looked in distress and was taking rapid, shallow breaths. Incentive spirometry was ordered for the patient, along with regular nebulization by respiratory therapist. Possible discharge for tomorrow was discussed with the patient considering she remains stable for discharge. 10/31- patient was seen at bedside today. Her white count today was 16.7. She stated that she had chest pain tightness. She was recommended to do incentive spirometry every hour. We will continue with the same IV antibiotics and follow up with white count tomorrow. Pending biopsy result. Objective vital signs Vital Sign Date Time Temp Pulse Resp B/P (MAP) Pulse Ox O2 Delivery O2 Flow Rate FiO2 10/31/24 13:01 98.6 81 20 115/55 (75) 97 98.6 10/31/24 10:56 3.0 32 10/31/24 08:00 Nasal Cannula* Total Intake and Output 10/30/24 10/30/24 10/31/24 15:00 23:00 07:00 Intake Total 300 ml 570 ml 500 ml Balance 300 ml 570 ml 500 ml medications Current Medications Medications Dose Ordered Sig/Crystal Route Start Time Stop Time Status Last Admin Dose Admin Ondansetron HCl 4 mg Q4HP PRN IV 10/28/24 02:30 Docusate Sodium 100 mg BIDPRN PRN PO 10/28/24 02:30 Atorvastatin Calcium 10 mg DAILY PO 10/28/24 10:00 10/31/24 09:48 10 MG Clindamycin Phosphate 50 ml @ 50 mls/hr Q8HR IV 10/28/24 03:53 10/31/24 13:41 50 MLS/HR Azithromycin 250 ml @ 125 mls/hr DAILY IV 10/28/24 10:00 11/02/24 09:59 10/31/24 09:48 125 MLS/HR Ceftriaxone Sodium 50 ml @ 100 mls/hr DAILY@09 IV 10/28/24 09:00 10/31/24 09:48 100 MLS/HR Enoxaparin Sodium 40 mg DAILY SC 10/28/24 10:00 10/30/24 09:41 40 MG Morphine Sulfate 0.5 mg Q4HP PRN IV 10/28/24 05:30 10/30/24 20:53 0.5 MG Ipratropium [place] 0.5 mg Q6HPRN PRN NEB 10/28/24 10:30 10/28/24 17:58 0.5 MG Albuterol 2.5 mg Q6HPRN PRN NEB 10/28/24 10:30 10/28/24 17:57 2.5 MG Ibuprofen 600 mg Q8HP PRN PO 10/31/24 10:15 Examination General Appearance: Alert, Oriented X3, Cooperative, HEENT: Sutures in the left upper molars Respiratory: Clear to auscultation, decreased air entry bilaterally, mass with indistinct margins could be palpated in the midaxillary line on right side, 3 x 3 cm,patient is in distress and is taking rapid shallow breaths, chest wall tenderness right > left Cardiovascular: Regular rate, Normal S1, Normal S2, No murmurs, chest wall tenderness Abdominal: Normal bowel sounds, Soft, No tenderness, No hepatospenomegaly, No masses Extremities: Tenderness in the shoulders and back Skin: No rashes, No breakdown, No significant lesion Neuro: Normal gait, Normal speech, Strength at 5/5 X4 ext, Normal tone, Sensation intact, Cranial nerves 3-12 NL, Reflexes 2+ Psych/Mental Status: Mental status NL, Mood NL laboratory and microbiology Laboratory Tests 10/31/24 06:19 Test 10/31/24 06:19 Range/Units Serum Glucose 140 H 74-106 mg/dL Microbiology Date/Time Source Procedure Growth Status 10/28/24 11:45 Voided Urine Urine Culture - Final Complete 10/28/24 11:35 Throat Nose/Throat Culture - Final Complete 10/28/24 02:36 Mouth Gram Stain - Final Resulted 10/28/24 02:36 Mouth Wound Culture - Preliminary Resulted 10/27/24 17:38 Blood Blood Culture - Preliminary NO GROWTH AFTER 72 HOURS OF INCUBATION. Resulted Labs and/or images reviewed: Labs reviewed by me, Image(s) reviewed by me Problem List/Assessment/Plan Problem List/Assessment/Plan Acute hypoxic respiratory failure ?Pleural/bone tumor s/p IR needle biopsy Right pleural effusion atelectasis -currently on 2 L oxygen by nasal cannula -6.8 x 3.8 cm lytic destructive soft tissue mass inseparable from the posterior lateral right fifth rib. This mass also slightly erodes the posterior lateral right 6th rib. This mass either originates from the bone or from the adjacent pleura. There is an associated trace right pleural effusion. There are bands of right upper, middle, and lower lobe atelectasis. There is mild lingular atelectasis. -[id number] -pulmonology on board -IR consulted for CT-guided biopsy- pending results Oral cellulitis -continue clindamycin Hyperlipidemia -continue Lipitor Obesity, class 1, BMI 33.6 -the patient educated on lifestyle modifications to lose weight PUD prophylaxis: Not indicated DVT prophylaxis: Not indicated Goals of care: Full code, discussed for >23 minutes Plan discussed with patient Plan discussed with Dr Kim Plan discussed with: Patient My Orders My Orders Orders - HAM BECERRIL Procedure Category Date Status Time Regular Diet DIET 10/31/24 Transmitted Breakfast Date of Service: Oct 31, 2024 Billing Provider: ABRAHAN KIM MD Common Visit Codes: [id number] INP/OBS CARE(HIGH) HAM BECERRIL Oct 31, 2024 13:53 ABRAHAN KIM MD Nov 06, 2024 21:39
--- NOTE | 2024-10-31 23:32 | DVHPN2 ---
Subjective DOS: 10/31/2024 Patient seen and examined at bedside. Remains on supplemental oxygen Overnight events reviewed. Changes from previous H/P or p: No Changes Objective Vitals Vital Signs Date Time Temp Pulse Resp B/P (MAP) Pulse Ox O2 Delivery O2 Flow Rate FiO2 10/31/24 22:56 86 22 100 10/31/24 22:50 Nasal Cannula* 2 28 10/31/24 21:00 98.7 115/71 (86) 98.7 Intake/Output Intake and Output 10/31/24 06:59 Intake Total 1370 ml Balance 1370 ml Intake Oral 970 ml IV Total 400 ml # Voids 5 # Bowel Movements 1 General Appearance: Alert, Oriented X3, Cooperative, No acute distress HEENT: Atraumatic, PERRLA, EOMI Lungs: Clear to auscultation, Other (Decreased air entry bilaterally. No wheezing or rhonchi.) Cardiovascular: Regular rate, Normal S1, Normal S2 Abdomen: Normal bowel sounds, Soft, No tenderness Musculoskeletal: Normal sensory function, Normal motor function Extremities: No clubbing, No cyanosis, No edema Neuro: Normal gait, Normal speech, Strength at 5/5 X4 ext, Cranial nerves 3-12 NL Skin: No Breakdown, No Bruising, No Significant Lesion, No Cyanosis; Dry, I ntact; No Petechiae, No Rashes; Warm; No Wounds Psych/Mental Status: Mental status NL, Mood NL Medications Current Medications Medications Dose Ordered Sig/Crystal Route Start Time Stop Time Status Last Admin Dose Admin Ondansetron HCl 4 mg Q4HP PRN IV 10/28/24 02:30 Docusate Sodium 100 mg BIDPRN PRN PO 10/28/24 02:30 Atorvastatin Calcium 10 mg DAILY PO 10/28/24 10:00 10/31/24 09:48 10 MG Clindamycin Phosphate 50 ml @ 50 mls/hr Q8HR IV 10/28/24 03:53 10/31/24 22:24 50 MLS/HR Azithromycin 250 ml @ 125 mls/hr DAILY IV 10/28/24 10:00 11/02/24 09:59 10/31/24 09:48 125 MLS/HR Ceftriaxone Sodium 50 ml @ 100 mls/hr DAILY@09 IV 10/28/24 09:00 10/31/24 09:48 100 MLS/HR Enoxaparin Sodium 40 mg DAILY SC 10/28/24 10:00 10/30/24 09:41 40 MG Morphine Sulfate 0.5 mg Q4HP PRN IV 10/28/24 05:30 10/30/24 20:53 0.5 MG Ipratropium [place] 0.5 mg Q6HPRN PRN NEB 10/28/24 10:30 10/31/24 22:50 0.5 MG Albuterol 2.5 mg Q6HPRN PRN NEB 10/28/24 10:30 10/31/24 22:50 2.5 MG Ibuprofen 600 mg Q8HP PRN PO 10/31/24 10:15 Laboratory Results Laboratory Tests 10/31/24 06:19 Chemistry Test 10/31/24 06:19 Calcium Level 8.7 mg/dL (8.7-10.4) Urinalysis Test 10/28/24 11:45 Urine Color Yellow (Yellow) Urine Clarity Clear (Clear) Urine pH 6.0 (5.0-9.0) Urine Specific [place] 1.044 (1.001-1.035) Urine Protein Trace (Negative) H Urine Ketones Negative (Negative) Urine Blood Negative /uL (Negative) Urine Nitrite Negative (Negative) Urine Bilirubin Negative (Negative) Urine Urobilinogen Normal mg/dL (Negative) Urine Leukocyte Esterase Negative /uL (Negative) Urine RBC 1 /hpf (0 - 4) Urine Microscopic WBC 4 /HPF (0-5) Urine Squamous Epithelial Cells Few /hpf (<5) Urine Bacteria None seen /hpf (None Seen) Urine Mucus Few (None Seen) Urine Glucose Normal mg/dL (Normal) Microbiology Microbiology Date/Time Source Procedure Growth Status 10/28/24 11:45 Voided Urine Urine Culture - Final Complete 10/28/24 11:35 Throat Nose/Throat Culture - Final Complete 10/28/24 02:36 Mouth Gram Stain - Final Resulted 10/28/24 02:36 Mouth Wound Culture - Preliminary Resulted 10/27/24 17:38 Blood Blood Culture - Preliminary NO GROWTH AFTER 72 HOURS OF INCUBATION. 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 Right pleural effusion Atelectasis Sepsis Pneumonia Oral cellulitis Dyslipidemia Obesity, BMI 35.2 Events: Remains on supplemental oxygen, 3 LPM NC Taper O2 as tolerated S/p IR needle biopsy of right lung (5th rib) mass. Pathology results pending. Continue bronchodilators q.6 hours PRN. Continue antibiotics WBC trended up to 16 K Blood cultures show no growth at 72 hours Urine cultures show no growth. Nares culture shows no Beta hemolytic Streptococcus. Incentive spirometry for atelectasis. Pain control Avoid oversedation DVT prophylaxis w/ Lovenox Explained to patient the need for outpatient: 1. PET CT to rule out metastasis vs. CT imaging. 2. Oncology evaluation and management once biopsy results and markers are complete. 3. Bone scan. Recommend followup as outpatient in [facility]monary Clinic, [address]. Labs and imaging reviewed. Rest of plan as noted below. Plan: Supplemental oxygen Titrate to keep O2 sats above 92%. CT angio demonstrated 6.8 x 3.8 cm lytic destructive soft tissue mass inseparable from the posterior lateral right fifth rib. This mass also slightly erodes the posterior lateral right 6th rib. This mass either originates from the bone or from the adjacent pleura. There is an associated trace right pleural effusion. There are bands of right upper, middle, and lower lobe atelectasis. Mild lingular atelectasis. IV antibiotics Follow up cultures Bronchodilators Incentive spirometry for atelectasis Continue atorvastatin Pain control Avoid oversedation Wound care. Monitor renal function. Monitor electrolytes. Supplement as necessary. Monitor ins and outs. Diet and lifestyle modifications for weight reduction Obesity complicates all care DVT prophylaxis. Prognosis: Poor given patient's multiple co-morbidities. Rest of plan per hospitalist and other consultants. Thank you, Dr. Danielle, for allowing me to participate in this patient's care. Further recommendations will depend on the patient's clinical course. Please do not hesitate to contact me if you have any questions or concerns. This medical document was created using an electronic medical record system with [employer] dictation system. Although these documentations are being carefully reviewed, there may still be some phonetic and typographical changes. The errors are purely typographical, due to imperfection on the software program, and do not reflect any compromise in the patient's medical care. Plan discussed with: Patient, Other (RN Cierra) Date of Service: Oct 31, 2024 Billing Provider: BERNARDO AMOR MD Common Visit Codes: [id number] INP/OBS CARE(HIGH) BERNARDO AMOR MD Oct 31, 2024 23:32
[2024-11-01] VITALS (10 sets, daily range): BP systolic 113–132; BP diastolic 49–73; PULSE 75–85; RESP 17–20; TEMP 98–98.5; O2SAT 90–98
[2024-11-01 06:54] LABS: Hematocrit 31.4 % (36.0-46.0); Hemoglobin 10.5 g/dL (12.2-16.2); Mean Corpuscular Hemoglobin 29.8 pg (28.0-32.0); Mean Corpuscular Volume 89.4 fL (80.0-100.0); Nucleated Red Blood Cells % 0.0 %
[2024-11-01 07:03] LABS: Anion Gap 11 (5-15); Carbon Dioxide 25 mmol/L (20-31); Chloride 102 mmol/L (98-107); Potassium 3.8 mmol/L (3.5-5.1); Sodium 138 mmol/L (136-145)
[2024-11-01 07:04] LABS: Calcium 8.7 mg/dL (8.7-10.4)
[2024-11-01 07:09] LABS: BUN/Creatinine Ratio 11.7 (10.0-20.0)
[2024-11-01 07:15] LABS: Blood Urea Nitrogen 7 mg/dL (9-23); Glucose 155 mg/dL (74-106)
[2024-11-01] MEDS: MIDAZOLAM HCL 2MG/2ML 2ml VIAL (1mg/ml) IV ONE (11:51)
[2024-11-01] MEDS: fentaNYL CITRATE 100 MCG/2 ML VL IV ONE (11:51)
[2024-11-01 13:53] LABS: Base Excess 2.1 mmol/L (-2.0-3.0)
--- NOTE | 2024-11-01 16:31 | DVHPNRES ---
Progress Note Date Seen: Nov 01, 2024 Resident Creating Document: HAM BECERRIL RESIDENT Medical Necessity Reason Pt with a Central, PICC or Fol: No Subjective Review of Systems Valdez Chaparro is a 59-year-old female with past medical history of hyperlipidemia who presented to the ED with a complaint of upper back pain radiating to the front of the chest. Patient mentions that she has had this pain for the last 2 weeks. Describes it as sharp, 9/10 in intensity and worsened with movement and deep breathing. Patient also has shortness of breath since 5-6 months. Patient mentions she was hospitalized 2 weeks ago for the same pain, was also diagnosed with pneumonia at that time. Also mentions she has a torn rotator cuff for which he is due for surgery once the pneumonia subsides. She recently had cellulitis in her upper jaw, infection related to a dental bridge which was removed one week back, for which she is currently on clindamycin. She also mentions she has been taking Ozempic since 1 month for borderline diabetes and has had decreased appetite with the same. She denies any fever chills or weight loss in the last few weeks. Past medical history: Hyperlipidemia Past surgical history: Tibial fracture surgery Medications: Lipitor, Keflex, clindamycin Social & Personal history: Lives with family Smoking: Denies Alcohol: Occasional use Drugs: Denies Allergies: No known allergies Patient seen and examined at bedside. Patient is alert and oriented to time, place person and responding to all questions. The patient is a distress and is taking shallow breaths because of the pain. Eyes: No Pain, No Vision change, No Conjunctivae inflammation, No Eyelid inflammation, No Redness ENT: No Ear pain, No Ear discharge, No Nose pain, No Nose discharge, No Nose congestion, No Mouth pain, No Mouth swelling, No Throat pain, No Throat swelling Cardiovascular: No Chest Pain, No Palpitations, No Orthopnea, No Paroxysmal No Dyspnea, No Edema, No Lt Headedness Respiratory: No Cough, No Dry, Shortness of breath, SOB with exertion, No Wheezing, No Hemoptysis, No Pleuritic Pain, No Sputum Gastrointestinal: No Nausea, No Vomiting, No Abdominal Pain, No Diarrhea, No Constipation, No Melena, No Hematochezia Genitourinary: No Dysuria, No Frequency, No Incontinence, No Hematuria, No Retention 10/29- the patient was seen at bedside today. Pulmonology saw the patient yesterday and recommended supplemental oxygen with titration to keep oxygen saturation about 92%, and also recommended incentive spirometry. She was also started on feel sensation with albuterol and ipratropium. White count today was 14.8. CT-guided biopsy was done and is pending biopsy results by pathology. 10/30- patient was seen at bedside today. She looked in distress and was taking rapid, shallow breaths. Incentive spirometry was ordered for the patient, along with regular nebulization by respiratory therapist. Possible discharge for tomorrow was discussed with the patient considering she remains stable for discharge. 10/31- patient was seen at bedside today. Her white count today was 16.7. She stated that she had chest pain tightness. She was recommended to do incentive spirometry every hour. We will continue with the same IV antibiotics and follow up with white count tomorrow. Pending biopsy result. 11/01- the patient was seen at bedside today. White count today was 10.6. Patient continued doing regular incentive spirometry. On trying to wean her off oxygen, the patient desaturated to the 80s. ABG on room air was done which showed O2 of 52, the patient requires home oxygen. client services analyst consult for home oxygen was placed. The patient will be discharged home when she gets the home oxygen and follow-up with pulmonology outpatient. Objective vital signs Vital Sign Date Time Temp Pulse Resp B/P (MAP) Pulse Ox O2 Delivery O2 Flow Rate FiO2 11/01/24 13:00 98.2 85 17 116/49 (71) 93 98.2 11/01/24 10:00 Room Air 0.0 11/01/24 10:00 21 Total Intake and Output 10/31/24 10/31/24 11/01/24 15:00 23:00 07:00 Intake Total 350 ml 500 ml 300 ml Balance 350 ml 500 ml 300 ml medications Current Medications Medications Dose Ordered Sig/Crystal Route Start Time Stop Time Status Last Admin Dose Admin Ondansetron HCl 4 mg Q4HP PRN IV 10/28/24 02:30 Docusate Sodium 100 mg BIDPRN PRN PO 10/28/24 02:30 Atorvastatin Calcium 10 mg DAILY PO 10/28/24 10:00 11/01/24 10:35 10 MG Clindamycin Phosphate 50 ml @ 50 mls/hr Q8HR IV 10/28/24 03:53 11/01/24 06:24 50 MLS/HR Azithromycin 250 ml @ 125 mls/hr DAILY IV 10/28/24 10:00 11/02/24 09:59 11/01/24 12:06 125 MLS/HR Ceftriaxone Sodium 50 ml @ 100 mls/hr DAILY@09 IV 10/28/24 09:00 11/01/24 10:35 100 MLS/HR Enoxaparin Sodium 40 mg DAILY SC 10/28/24 10:00 10/30/24 09:41 40 MG Morphine Sulfate 0.5 mg Q4HP PRN IV 10/28/24 05:30 10/30/24 20:53 0.5 MG Ipratropium [place] 0.5 mg Q6HPRN PRN NEB 10/28/24 10:30 10/31/24 22:50 0.5 MG Albuterol 2.5 mg Q6HPRN PRN NEB 10/28/24 10:30 10/31/24 22:50 2.5 MG Ibuprofen 600 mg Q8HP PRN PO 10/31/24 10:15 Examination General Appearance: Alert, Oriented X3, Cooperative, HEENT: Sutures in the left upper molars Respiratory: Clear to auscultation, decreased air entry bilaterally, mass with indistinct margins could be palpated in the midaxillary line on right side, 3 x 3 cm,patient is in distress and is taking rapid shallow breaths, chest wall tenderness right > left Cardiovascular: Regular rate, Normal S1, Normal S2, No murmurs, chest wall tenderness Abdominal: Normal bowel sounds, Soft, No tenderness, No hepatospenomegaly, No masses Extremities: Tenderness in the shoulders and back Skin: No rashes, No breakdown, No significant lesion Neuro: Normal gait, Normal speech, Strength at 5/5 X4 ext, Normal tone, Sensation intact, Cranial nerves 3-12 NL, Reflexes 2+ Psych/Mental Status: Mental status NL, Mood NL laboratory and microbiology Laboratory Tests 11/01/24 06:17 Test 11/01/24 06:17 Range/Units Serum Glucose 155 H 74-106 mg/dL Microbiology Date/Time Source Procedure Growth Status 10/28/24 11:45 Voided Urine Urine Culture - Final Complete 10/28/24 11:35 Throat Nose/Throat Culture - Final Complete 10/28/24 02:36 Mouth Gram Stain - Final Resulted 10/28/24 02:36 Mouth Wound Culture - Preliminary Resulted 10/27/24 17:38 Blood Blood Culture - Preliminary NO GROWTH AFTER 72 HOURS OF INCUBATION. Resulted Labs and/or images reviewed: Labs reviewed by me, Image(s) reviewed by me Problem List/Assessment/Plan Problem List/Assessment/Plan Acute hypoxic respiratory failure ?Pleural/bone tumor s/p IR needle biopsy Right pleural effusion atelectasis -currently on 2 L oxygen by nasal cannula -6.8 x 3.8 cm lytic destructive soft tissue mass inseparable from the posterior lateral right fifth rib. This mass also slightly erodes the posterior lateral right 6th rib. This mass either originates from the bone or from the adjacent pleura. There is an associated trace right pleural effusion. There are bands of right upper, middle, and lower lobe atelectasis. There is mild lingular atelectasis. -ALP-184 on admission -pulmonology on board -IR consulted for CT-guided biopsy- pending results -requires home oxygen, social sciences research scientist consult for the same placed Oral cellulitis -continue clindamycin Hyperlipidemia -continue Lipitor Obesity, class 1, BMI 33.6 -the patient educated on lifestyle modifications to lose weight PUD prophylaxis: Not indicated DVT prophylaxis: Not indicated Goals of care: Full code, discussed for >23 minutes Plan discussed with patient Plan discussed with Dr Kim Plan discussed with: Patient My Orders My Orders Orders - HAM BECERRIL RESIDENT Procedure Category Date Status Time * [employer] Consultant CONS 11/01/24 Transmitted Consult Discharge DISCHARGE 11/01/24 Transmitted 16:14 Date of Service: Nov 01, 2024 Billing Provider: ABRAHAN KIM MD Common Visit Codes: [id number] INP/OBS CARE(MOD) HAM BECERRIL RESIDENT Nov 01, 2024 16:31 ABRAHAN KIM MD Nov 06, 2024 21:40
--- NOTE | 2024-11-01 23:44 | DVHPN2 ---
Subjective DOS: 11/01/2024 Patient seen and examined at bedside. Remains on supplemental oxygen Overnight events reviewed. Changes from previous H/P or p: No Changes Objective Vitals Vital Signs Date Time Temp Pulse Resp B/P (MAP) Pulse Ox O2 Delivery O2 Flow Rate FiO2 11/01/24 21:36 97 Nasal Cannula* 2 28 11/01/24 21:19 98.0 75 17 132/70 (90) 98.0 Intake/Output Intake and Output 11/01/24 07:00 Intake Total 1150 ml Balance 1150 ml Intake Oral 800 ml IV Total 350 ml # Voids 4 General Appearance: Alert, Oriented X3, Cooperative, No acute distress HEENT: Atraumatic, PERRLA, EOMI Lungs: Clear to auscultation, Other (Decreased air entry bilaterally. No wheezing or rhonchi.) Cardiovascular: Regular rate, Normal S1, Normal S2 Abdomen: Normal bowel sounds, Soft, No tenderness Musculoskeletal: Normal sensory function, Normal motor function Extremities: No clubbing, No cyanosis, No edema Neuro: Normal gait, Normal speech, Strength at 5/5 X4 ext, Cranial nerves 3-12 NL Skin: No Breakdown, No Bruising, No Significant Lesion, No Cyanosis; Dry, I ntact; No Petechiae, No Rashes; Warm; No Wounds Psych/Mental Status: Mental status NL, Mood NL Medications Current Medications Medications Dose Ordered Sig/Crystal Route Start Time Stop Time Status Last Admin Dose Admin Ondansetron HCl 4 mg Q4HP PRN IV 10/28/24 02:30 Docusate Sodium 100 mg BIDPRN PRN PO 10/28/24 02:30 Atorvastatin Calcium 10 mg DAILY PO 10/28/24 10:00 11/01/24 10:35 10 MG Clindamycin Phosphate 50 ml @ 50 mls/hr Q8HR IV 10/28/24 03:53 11/01/24 06:24 50 MLS/HR Azithromycin 250 ml @ 125 mls/hr DAILY IV 10/28/24 10:00 11/02/24 09:59 11/01/24 12:06 125 MLS/HR Ceftriaxone Sodium 50 ml @ 100 mls/hr DAILY@09 IV 10/28/24 09:00 11/01/24 10:35 100 MLS/HR Enoxaparin Sodium 40 mg DAILY SC 10/28/24 10:00 10/30/24 09:41 40 MG Morphine Sulfate 0.5 mg Q4HP PRN IV 10/28/24 05:30 10/30/24 20:53 0.5 MG Ipratropium [place] 0.5 mg Q6HPRN PRN NEB 10/28/24 10:30 10/31/24 22:50 0.5 MG Albuterol 2.5 mg Q6HPRN PRN NEB 10/28/24 10:30 10/31/24 22:50 2.5 MG Ibuprofen 600 mg Q8HP PRN PO 10/31/24 10:15 Laboratory Results Laboratory Tests 11/01/24 06:17 Chemistry Test 11/01/24 06:17 Calcium Level 8.7 mg/dL (8.7-10.4) Urinalysis Test 10/28/24 11:45 Urine Color Yellow (Yellow) Urine Clarity Clear (Clear) Urine pH 6.0 (5.0-9.0) Urine Specific [place] 1.044 (1.001-1.035) Urine Protein Trace (Negative) H Urine Ketones Negative (Negative) Urine Blood Negative /uL (Negative) Urine Nitrite Negative (Negative) Urine Bilirubin Negative (Negative) Urine Urobilinogen Normal mg/dL (Negative) Urine Leukocyte Esterase Negative /uL (Negative) Urine RBC 1 /hpf (0 - 4) Urine Microscopic WBC 4 /HPF (0-5) Urine Squamous Epithelial Cells Few /hpf (<5) Urine Bacteria None seen /hpf (None Seen) Urine Mucus Few (None Seen) Urine Glucose Normal mg/dL (Normal) Blood Gas Results Test 11/01/24 13:40 Arterial Blood pH 7.516 (7.350-7.450) FiO2 % 21.0 Microbiology Microbiology Date/Time Source Procedure Growth Status 10/28/24 11:45 Voided Urine Urine Culture - Final Complete 10/28/24 11:35 Throat Nose/Throat Culture - Final Complete 10/28/24 02:36 Mouth Gram Stain - Final Resulted 10/28/24 02:36 Mouth Wound Culture - Preliminary Resulted 10/27/24 17:38 Blood Blood Culture - Final NO GROWTH AFTER 5 DAYS OF INCUBATION. 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 Right pleural effusion Atelectasis Sepsis Pneumonia Oral cellulitis Dyslipidemia Obesity, BMI 35.2 Events: Remains on supplemental oxygen, 2 LPM NC Taper O2 as tolerated Awaiting home oxygen. S/p IR needle biopsy of right lung (5th rib) mass. Follow up pathology results. Continue bronchodilators q.6 hours PRN. Continue antibiotics WBC within normal limits - 10.6 K Blood cultures show no growth thus far Urine cultures show no growth. Nares culture shows no Beta hemolytic Streptococcus. Incentive spirometry for atelectasis. DVT prophylaxis w/ Lovenox Explained to patient the need for outpatient: 1. PET CT to rule out metastasis vs. CT imaging. 2. Oncology evaluation and management once biopsy results and markers are complete. 3. Bone scan. Patient is stable for discharge from the pulmonary standpoint once home O2 is arranged. Recommend outpatient sleep study Recommend followup as outpatient in Pulmonary Clinic, [address]. Labs and imaging reviewed. Rest of plan as noted below. Plan: Supplemental oxygen Titrate to keep O2 sats above 92%. CT angio demonstrated 6.8 x 3.8 cm lytic destructive soft tissue mass inseparable from the posterior lateral right fifth rib. This mass also slightly erodes the posterior lateral right 6th rib. This mass either originates from the bone or from the adjacent pleura. There is an associated trace right pleural effusion. There are bands of right upper, middle, and lower lobe atelectasis. Mild lingular atelectasis. IV antibiotics Follow up cultures Bronchodilators Incentive spirometry for atelectasis Continue atorvastatin Pain control Avoid oversedation Wound care. Monitor renal function. Monitor electrolytes. Supplement as necessary. Monitor ins and outs. Diet and lifestyle modifications for weight reduction Obesity complicates all care DVT prophylaxis. Prognosis: Poor given patient's multiple co-morbidities. Rest of plan per hospitalist and other consultants. Thank you, Dr. Danielle, for allowing me to participate in this patient's care. Further recommendations will depend on the patient's clinical course. Please do not hesitate to contact me if you have any questions or concerns. This medical document was created using an electronic medical record system with [employer] system. Although these documentations are being carefully reviewed, there may still be some phonetic and typographical changes. The errors are purely typographical, due to imperfection on the software program, and do not reflect any compromise in the patient's medical care. Plan discussed with: Patient, Other (KRISTA Ware) Date of Service: Nov 01, 2024 Billing Provider: BERNARDO AMOR MD Common Visit Codes: [id number] INP/OBS CARE(HIGH) BERNARDO AMOR MD Nov 01, 2024 23:44
[2024-11-02 08:00] VITALS: O2SAT 90
[2024-11-02 09:00] VITALS: BP 113/59; PULSE 82; RESP 17; TEMP 99.5; O2SAT 94
[2024-11-02 10:00] VITALS: O2SAT 90
[2024-11-02 13:57] VITALS: BP 113/59; PULSE 82; RESP 17; TEMP 99.5; O2SAT 94
--- NOTE | 2024-11-02 14:10 | DVHDSRES ---
Discharge Summary Date of Admission Resident Creating Document: HAM BECERRIL RESIDENT Oct 28, 2024 at 02:22 Date of Discharge: Nov 01, 2024 Admitting Diagnosis Acute hypoxic respiratory failure Right lung mass Labs/Diagnostic Data: Laboratory Results Test 11/01/24 13:40 11/01/24 06:17 10/28/24 11:45 10/28/24 11:35 Blood Gas Specimen Type Arterial Blood Gas Sample Site Right radial Blood Gas Patient Temperature 37.0 Arterial Blood Date Drawn [id number] Arterial Blood pH 7.516 (7.350-7.450) Arterial Blood Partial Pressure CO2 30.9 mmHg (32.0-45.0) Arterial Blood Partial Pressure O2 52.0 mmHg (83.0-108.0) Arterial Blood HCO3 24.4 mmol/L (21.0-28.0) Arterial Blood Oxygen Saturation 88.1 % (94.0-98.0) Arterial Blood Base Excess 2.1 mmol/L (-2.0-3.0) Arterial Blood Oxyhemoglobin 87.6 % (94.0-98.0) Arterial Blood Carboxyhemoglobin 0.2 % (0.5-1.5) Arterial Blood Methemoglobin 0.4 % (0.0-1.5) Homar Test Yes Blood Gas Total Hemoglobin 11.80 g/dL (12.0-16.0) Blood Gas Modality Room air FiO2 % 21.0 Blood Gas Critical Value Read Back Yes Blood Gas Notified Whom aida Christopher md Blood Gas Notified Time [id number] Blood Gas Notified By Store Host kalie viera White Blood Count 10.6 10^3/uL (4.4-10.8) Red Blood Count 3.51 10^6/uL (4.0-5.20) Hemoglobin 10.5 g/dL (12.2-16.2) Hematocrit 31.4 % (36.0-46.0) Mean Corpuscular Volume 89.4 fL (80.0-100.0) Mean Corpuscular Hemoglobin 29.8 pg (28.0-32.0) Mean Corpuscular Hemoglobin Concent 33.4 g/dL (32.0-36.0) Red Cell Distribution Width 13.4 % (11.8-14.3) Platelet Count 366 10^3/uL (140-450) Mean Platelet Volume 8.4 fL (6.9-10.8) Neutrophils (%) (Auto) 80.9 % (37.0-80.0) Lymphocytes (%) (Auto) 10.6 % (10.0-50.0) Monocytes (%) (Auto) 5.9 % (0.0-12.0) Eosinophils (%) (Auto) 2.0 % (0.0-7.0) Basophils (%) (Auto) 0.6 % (0.0-2.0) Neutrophils # (Auto) 8.6 10 ^3/uL (1.6-8.6) Lymphocytes # (Auto) 1.1 10 ^3/uL (0.4-5.4) Monocytes # (Auto) 0.6 10 ^3/uL (0-1.3) Eosinophils # (Auto) 0.2 10 ^3/uL (0-0.8) Basophils # (Auto) 0.1 10 ^3/uL (0-0.2) Nucleated Red Blood Cells 0.0 % Sodium Level 138 mmol/L (136-145) Potassium Level 3.8 mmol/L (3.5-5.1) Chloride Level 102 mmol/L (98-107) Carbon Dioxide Level 25 mmol/L (20-31) Anion Gap 11 (5-15) Blood Urea Nitrogen 7 mg/dL (9-23) Creatinine 0.60 mg/dL (0.550-1.02) Glomerular Filtration Rate Calc 105 mL/min (>90) BUN/Creatinine Ratio 11.7 (10.0-20.0) Serum Glucose 155 mg/dL (74-106) Calcium Level 8.7 mg/dL (8.7-10.4) Urine Color Yellow (Yellow) Urine Clarity Clear (Clear) Urine pH 6.0 (5.0-9.0) Urine Specific [place] 1.044 (1.001-1.035) Urine Protein Trace (Negative) Urine Ketones Negative (Negative) Urine Blood Negative /uL (Negative) Urine Nitrite Negative (Negative) Urine Bilirubin Negative (Negative) Urine Urobilinogen Normal mg/dL (Negative) Urine Leukocyte Esterase Negative /uL (Negative) Urine RBC 1 /hpf (0 - 4) Urine Microscopic WBC 4 /HPF (0-5) Urine Squamous Epithelial Cells Few /hpf (<5) Urine Bacteria None seen /hpf (None Seen) Urine Mucus Few (None Seen) Urine Glucose Normal mg/dL (Normal) Influenza Type A Antigen Negative (Negative) Influenza Type B Antigen Negative (Negative) SARS-CoV-2 Antigen (Rapid) Negative (NEGATIVE) Group A Streptococcus Rapid Negative Test 10/28/24 04:02 10/27/24 18:59 10/27/24 17:39 Lactic Acid Level 1.6 mmol/L (0.4-2.0) Total Bilirubin 0.4 mg/dL (0.2-1.0) Aspartate Amino Transferase (AST) 18 U/L (13-40) Alanine Aminotransferase (ALT) 36 U/L (7-40) Alkaline Phosphatase 184 U/L (46-116) Total Protein 8.6 g/dL (5.7-8.2) Albumin 4.4 g/dL (3.2-4.8) Troponin I High Sensitivity < 3 ng/L (</=34) D-Dimer, Quantitative 2.11 mg/L FEU (0.0-0.49) B-Type Natriuretic Peptide 14.43 pg/mL (0-100) Other Laboratory Tests 11/01/24 06:17 Brief Hx & Hospital Course: Valdez Chaparro is a 59-year-old female with past medical history of hyperlipidemia who presented to the ED with a complaint of upper back pain radiating to the front of the chest. Patient mentions that she has had this pain for the last 2 weeks. Describes it as sharp, 9/10 in intensity and worsened with movement and deep breathing. Patient also has shortness of breath since 5-6 months. Patient mentions she was hospitalized 2 weeks ago for the same pain, was also diagnosed with pneumonia at that time. Also mentions she has a torn rotator cuff for which he is due for surgery once the pneumonia subsides. She recently had cellulitis in her upper jaw, infection related to a dental bridge which was removed one week back, for which she is currently on clindamycin. She also mentions she has been taking Ozempic since 1 month for borderline diabetes and has had decreased appetite with the same. She denies any fever chills or weight loss in the last few weeks. CXR- Development of bibasilar areas of atelectasis. CT angio of the chest revealed- 6.8 x 3.8 cm destructive lytic soft tissue mass centered at the posterolateral right fifth rib with slight involvement of the posterolateral right 6th rib. It is unclear whether this mass originates from the bone or the adjacent pleural cavity. Finding is highly concerning for a malignant process. Doppler study of the lower extremity negative for DVT. Patient had CT chest guided biopsy done on 10/29/2024. Pending report. Patient qualify for home oxygen. Patient is being discharged with the home oxygen. Patient was advised to follow up with the discharge clinic. Patient was also advised to follow up with the primary care physician. Patient is to follow up with the scientist/engineer for further evaluation and care with a report of biopsy. Patient was hemodynamically stable on discharge. Operations or Procedures [address] [address] Ph: [phone] DIAGNOSTIC IMAGING Diagnostic Imaging Report : [id number] Signed PATIENT: HUSSEIN BOURGEOISCCT: [id number] UNIT: [id number] : 1965 LOC: ER ROOM / BED: / AGE / SEX: 59 / F ADM STATUS: REG ER SERVICE 1610 ORDERING PHYSICIAN: ANN DOOLEY MD PROCEDURE(s): CXRP - CHEST PORTABLE REASON: sob ORDER NUMBER(s): [id number], ACCESSION NUMBER(s): [id number] CHEST RADIOGRAPH Indication: sob Technique: Single frontal view of the chest was obtained Comparison: XY CHEST TWO VIEWS ROUTINE on DOS: 10/13/24 FINDINGS: Lines and Tubes: None Lungs: Development of bibasilar areas of atelectasis are noted when compared to 10/13/2024. Pleura: No effusion. No pneumothorax. Cardiomediastinal contours: Unremarkable Bones: No acute osseous abnormality. IMPRESSION: 1. Development of bibasilar areas of atelectasis are noted when compared to ATED BY: CHRISTOPHER DEE Jr., DO DICTATED DATE/TIME: 10/27/241647 SIGNED BY: CHRISTOPHER DEE Jr., SIGNED DATE/TIME: 10/27/241647 CC: [address] - [address] Ph: [phone] DIAGNOSTIC IMAGING Diagnostic Imaging Report : [id number] Signed PATIENT: JOSELINE BOURGEOIST: [id number] UNIT: [id number] : 1965 LOC: ER ROOM / BED: / AGE / SEX: 59 / F ADM STATUS: REG ER SERVICE 54 ORDERING PHYSICIAN: ANN DOOLEY MD PROCEDURE(s): CTACH - CT ANGIO CHEST CONTRAST REASON: Short of breath, hypoxic, elevated D-dimer, rule out PE ORDER NUMBER(s): [id number], ACCESSION NUMBER(s): [id number] CLINICAL HISTORY: Short of breath, hypoxic, elevated D-dimer, rule out PE TECHNIQUE: CT angiogram of the chest was performed with and without intravenous contrast. 3D reconstructed MIP images were created and archived on the PACS system under concurrent radiologist supervision. This exam was performed according to our departmental dose optimization program. Up-to-date CT equipment and radiation dose reduction techniques are utilized as appropriate. CTDI 14.8 DLP 946.2 COMPARISON: None FINDINGS: Evaluation is limited due to artifact from patient arm positioning. Evaluations further limited due to patient breathing artifact. There was adequate opacification of the pulmonary artery tree. There is no filling defect to suggest acute pulmonary embolism. The thoracic aorta is normal in course and caliber. There are [] atherosclerotic calcifications. The heart is normal in size. No pericardial effusion is seen. No enlarged mediastinal, hilar, or axillary lymph node is present. The central airways are patent. There is no bronchiectasis. There is no suspicious pulmonary nodule or area of consolidation. There is a 6.8 x 3.8 cm lytic destructive soft tissue mass inseparable from the posterior lateral right fifth rib. This mass also slightly erodes the posterior lateral right 6th rib. This mass either originates from the bone or from the adjacent pleura. There is an associated trace right pleural effusion. There are bands of right upper, middle, and lower lobe atelectasis. There is mild lingular atelectasis. There is no left pleural effusion. The visualized upper abdomen demonstrates post cholycystectomy changes. IMPRESSION: Limited exam with no definite evidence for acute pulmonary embolism. 6.8 x 3.8 cm destructive lytic soft tissue mass centered at the posterolateral right fifth rib with slight involvement of the posterolateral right 6th rib. It is unclear whether this mass originates from the bone or the adjacent pleural cavity. Finding is highly concerning for a malignant process. Trace right pleural effusion. ATED BY: JOSÉ MIGUEL MCCLURE MD DICTATED DATE/TIME: 10/27/242258 SIGNED BY: JOSÉ MIGUEL MCCLURE MD SIGNED DATE/TIME: 10/27/242258 CC: [place] [id number] Ph: [phone] DIAGNOSTIC IMAGING Diagnostic Imaging Report : [id number] Signed PATIENT: HUSSEIN BOURGEOISCCT: [id number] UNIT: [id number] : 1965 LOC: [facility]OW [facility] AGE / SEX: 59 / F ADM STATUS: ADM IN SERVICE 6 ORDERING PHYSICIAN: PREMA MERAZ RESIDENT PROCEDURE(s): BLDVT - BiLat Lower DVT REASON: elevated d dimer ORDER NUMBER(s): [id number], ACCESSION NUMBER(s): [id number] Bilateral lower extremity venous duplex Clinical History: elevated d dimer Comparison: None Findings: Duplex Doppler evaluation of the deep venous systems of both lower extremities from the common femoral veins to the popliteal veins including color Doppler and spectral/pulsed waveform analysis was performed. RIGHT SIDE: The common femoral vein demonstrates appropriate compressibility and waveform variability. There is compressibility/patency of the great saphenous vein at the proximal thigh. The femoral vein demonstrates appropriate compressibility and waveform variability. The deep femoral vein demonstrates appropriate compressibility and waveform variability. The popliteal vein demonstrates appropriate compressibility and waveform variability. There is normal compressibility at the tibioperoneal trunk. LEFT SIDE: The common femoral vein demonstrates appropriate compressibility and waveform variability. There is compressibility/patency of the great saphenous vein at the proximal thigh. The femoral vein demonstrates appropriate compressibility and waveform variability. The deep femoral vein demonstrates appropriate compressibility and waveform variability. The popliteal vein demonstrates appropriate compressibility and waveform variability. There is normal compressibility at the tibioperoneal trunk. IMPRESSION: No right or left femoropopliteal venous thrombosis. If clinical concern/symptoms persist or worsen, short-interval follow-up study is suggested. END IMPRESSION: DICTATED BY: JOSÉ MIGUEL MCCLURE MD DICTATED DATE/TIME: 10/28/24 08 SIGNED BY: JOSÉ MIGUEL MCCLURE MD SIGNED DATE/TIME: 10/28/24 08 CC: [place] [id number] Ph: [phone] DIAGNOSTIC IMAGING Diagnostic Imaging Report : [id number] Signed PATIENT: HUSSEIN BOURGEOISCCT: [id number] UNIT: [id number] : 1965 LOC: [facility] ROOM / BED: [address] [place] [address] AGE / SEX: 59 / F ADM STATUS: ADM IN SERVICE 1210 ORDERING PHYSICIAN: HAM BECERRIL RESIDENT PROCEDURE(s): CX2CT - CHEST WITHOUT CONTRAST REASON: RIB LESION BX ORDER NUMBER(s): [id number], ACCESSION NUMBER(s): [id number] CT CHEST WITHOUT CONTRAST, HISTORY: RIB LESION BX PROCEDURE: Informed consent was obtained. The patient was placed prone on the CT scanner. A limited localization CT scan of the chest was obtained. The skin overlying the lesion was prepped with chlorhexidine which was allowed to dry and draped in sterile fashion. Time out was performed. The skin and soft tissues were infiltrated with Xylocaine, and IV sedation was administered. With intermittent CT guidance, a 17 gauge Temno outer coaxial guiding needle was advanced into the right 5th rib mass. The needle position was confirmed with CT scan. 2 core biopsies were obtained using Temno inner 18 gauge biopsy needle. The specimens were sent in formalin to pathology for analysis. The needle was withdrawn, and post procedural CT obtained through the biopsy region. No immediate complication was identifiedwas noted. DLP = 1257 mGy-cm. SEDATION: Dr. Gaby Barrios was personally responsible for the administration of moderate sedation during the procedure performed, including the use of an independent trained observer who had no other duties during the procedure. The drugs utilized were IV fentanyl and versed (see nursing log for details). The total time of supervision by the attending physician was approximately 30 minutes. FINDINGS: Limited CT scan demonstrates a lytic mass in the posterior right 5th rib with the biopsy needle within the margin of the lung mass. IMPRESSION/PLAN: CT guided right posterior 5th rib mass lesion biopsy. Pathology results pending. ATED BY: RAGHU BARRIOS MD DICTATED DATE/TIME: 10/29/24 132 SIGNED BY: RAGHU BARRIOS MD SIGNED DATE/TIME: 10/29/241328 CC: [place] [id number] Ph: [phone] DIAGNOSTIC IMAGING Diagnostic Imaging Report : [id number] Signed PATIENT: HUSSEIN BOURGEOISCCT: [id number] UNIT: [id number] : 1965 LOC: [facility] ROOM / BED: [address] [place] [address] AGE / SEX: 59 / F ADM STATUS: ADM IN SERVICE 1210 ORDERING PHYSICIAN: HAM BECERRIL RESIDENT PROCEDURE(s): GA - CT GUIDANCE FOR NEEDLE PLACEME REASON: RIB LESION BX ORDER NUMBER(s): [id number], ACCESSION NUMBER(s): [id number] CT CHEST WITHOUT CONTRAST, HISTORY: RIB LESION BX PROCEDURE: Informed consent was obtained. The patient was placed prone on the CT scanner. A limited localization CT scan of the chest was obtained. The skin overlying the lesion was prepped with chlorhexidine which was allowed to dry and draped in sterile fashion. Time out was performed. The skin and soft tissues were infiltrated with Xylocaine, and IV sedation was administered. With intermittent CT guidance, a 17 gauge Temno outer coaxial guiding needle was advanced into the right 5th rib mass. The needle position was confirmed with CT scan. 2 core biopsies were obtained using Temno inner 18 gauge biopsy needle. The specimens were sent in formalin to pathology for analysis. The needle was withdrawn, and post procedural CT obtained through the biopsy region. No immediate complication was identifiedwas noted. DLP = 1257 mGy-cm. SEDATION: Dr. Gaby Barrios was personally responsible for the administration of moderate sedation during the procedure performed, including the use of an independent trained observer who had no other duties during the procedure. The drugs utilized were IV fentanyl and versed (see nursing log for details). The total time of supervision by the attending physician was approximately 30 minutes. FINDINGS: Limited CT scan demonstrates a lytic mass in the posterior right 5th rib with the biopsy needle within the margin of the lung mass. IMPRESSION/PLAN: CT guided right posterior 5th rib mass lesion biopsy. Pathology results pending. ATED BY: RAGHU BARRIOS MD DICTATED DATE/TIME: 10/29/24 132 SIGNED BY: RAGHU BARRIOS MD SIGNED DATE/TIME: 10/29/24 132 CC: Condition at Discharge: Stable Final Diagnosis/Problems List Acute hypoxic respiratory failure # right lung mass-suspected malignancy ?Pleural/bone tumor s/p IR needle biopsy Right pleural effusion atelectasis Oral cellulitis Hyperlipidemia Obesity, class 1, BMI 33.6 Discharge Disposition: Home Discharge Instruct/Medications Diet: Regular Activity: No Restrictions, As Tolerated Follow Up/Referral: follow up with pulmonology in 1-2 weeks follow up with pcp in 1-2 weeks follow up in [facility] clinic Medications: Augmentin 500 mg p.o. b.i.d. for 3 days Pantoprazole 20 mg p.o. daily Atorvastatin 10 mg p.o. q.h.s. Albuterol inhaler PRN as prescribed Scheduled Amoxicillin & Pot Clavulanate (Augmentin), 1 TAB PO BID Atorvastatin Calcium (Lipitor), 10 MG PO DAILY, (Reported) Pantoprazole Sodium Sesquihydr (Pantoprazole Sodium), 20 MG PO DAILY Scheduled PRN Albuterol Sulfate (Albuterol Sulfate Hfa), 108 MCG IN Q6HP PRN Discharge Statement: "Patient was advised to return to the ER or call 911 if any headaches, dizziness, shortness of breath, chest pain, abdominal pain, bleeding, fevers, or worsening of medical condition. Patient was counseled about treatment plan, medications, possible side effects, patientverbalized understanding. All questions were answered to the best of my ability. This discharge took greater then 30 minutes in planning, reviewing documentation, counseling the patient, and discussing with other team members." ASSESSMENT ASSESSMENT Assessment Acute hypoxic respiratory failure ?Pleural/bone tumor s/p IR needle biopsy Right pleural effusion atelectasis Oral cellulitis Hyperlipidemia Obesity, class 1, BMI 33.6 Date of Service: Nov 02, 2024 Billing Provider: ABRAHAN MARTINEZ MD Common Visit Codes: 37523-QEW/OBS DISCH DAY >30min ERMA MCNAMARA RESIDENT Nov 02, 2024 14:10 ABRAHAN MARTINEZ MD Nov 06, 2024 21:40
[2024-11-02] MEDS ORDERED: AMOX500T86 PO (14:12)
[2024-11-02] MEDS ORDERED: ALBU108A5 IN (14:12)
[2024-11-02] MEDS ORDERED: PANT40T PO (14:12)
--- NOTE | 2024-11-03 08:15 | DVHPN2 ---
Subjective DOS: 11/02/2024 Patient seen and examined at bedside. Remains on supplemental oxygen Overnight events reviewed. Reviewed: Care Plan Changes from previous H/P or p: No Changes Objective Vitals Vital Signs Date Time Temp Pulse Resp B/P (MAP) Pulse Ox O2 Delivery O2 Flow Rate FiO2 11/02/24 13:57 99.5 82 17 94 11/02/24 10:00 Room Air* 0 21 11/02/24 09:00 113/59 (77) General Appearance: Alert, Oriented X3, Cooperative, No acute distress HEENT: Atraumatic, PERRLA, EOMI Lungs: Clear to auscultation, Other (Decreased air entry bilaterally. No wheezing or rhonchi.) Cardiovascular: Regular rate, Normal S1, Normal S2 Abdomen: Normal bowel sounds, Soft, No tenderness Musculoskeletal: Normal sensory function, Normal motor function Extremities: No clubbing, No cyanosis, No edema Neuro: Normal gait, Normal speech, Strength at 5/5 X4 ext, Cranial nerves 3-12 NL Skin: No Breakdown, No Bruising, No Significant Lesion, No Cyanosis; Dry, I ntact; No Petechiae, No Rashes; Warm; No Wounds Psych/Mental Status: Mental status NL, Mood NL Laboratory Results Laboratory Tests 11/01/24 06:17 Urinalysis Test 10/28/24 11:45 Urine Color Yellow (Yellow) Urine Clarity Clear (Clear) Urine pH 6.0 (5.0-9.0) Urine Specific [place] 1.044 (1.001-1.035) Urine Protein Trace (Negative) H Urine Ketones Negative (Negative) Urine Blood Negative /uL (Negative) Urine Nitrite Negative (Negative) Urine Bilirubin Negative (Negative) Urine Urobilinogen Normal mg/dL (Negative) Urine Leukocyte Esterase Negative /uL (Negative) Urine RBC 1 /hpf (0 - 4) Urine Microscopic WBC 4 /HPF (0-5) Urine Squamous Epithelial Cells Few /hpf (<5) Urine Bacteria None seen /hpf (None Seen) Urine Mucus Few (None Seen) Urine Glucose Normal mg/dL (Normal) Microbiology Microbiology Date/Time Source Procedure Growth Status 10/28/24 11:45 Voided Urine Urine Culture - Final Complete 10/28/24 11:35 Throat Nose/Throat Culture - Final Complete 10/28/24 02:36 Mouth Gram Stain - Final Resulted 10/28/24 02:36 Mouth Wound Culture - Preliminary Resulted 10/27/24 17:38 Blood Blood Culture - Final NO GROWTH AFTER 5 DAYS OF INCUBATION. 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 Right pleural effusion Atelectasis Sepsis Pneumonia Oral cellulitis Dyslipidemia Obesity, BMI 35.2 Events: Remains on supplemental oxygen, 2 LPM NC Taper O2 as tolerated Awaiting home oxygen. S/p IR needle biopsy of right lung (5th rib) mass. Follow up pathology results. Continue bronchodilators q.6 hours PRN. Continue antibiotics WBC within normal limits - 10.6 K Blood cultures show no growth thus far Urine cultures show no growth. Nares culture shows no Beta hemolytic Streptococcus. Incentive spirometry for atelectasis. DVT prophylaxis w/ Lovenox Explained to patient the need for outpatient: 1. PET CT to rule out metastasis vs. CT imaging. 2. Oncology evaluation and management once biopsy results and markers are complete. 3. Bone scan. Recommend outpatient sleep study Recommend followup as outpatient in Pulmonary Clinic, [address]. No new complaints. No overnight events. Patient is stable for discharge from the pulmonary standpoint once home O2 is arranged. Labs and imaging reviewed. Rest of plan as noted below. Plan: Supplemental oxygen Titrate to keep O2 sats above 92%. CT angio demonstrated 6.8 x 3.8 cm lytic destructive soft tissue mass inseparable from the posterior lateral right fifth rib. This mass also slightly erodes the posterior lateral right 6th rib. This mass either originates from the bone or from the adjacent pleura. There is an associated trace right pleural effusion. There are bands of right upper, middle, and lower lobe atelectasis. Mild lingular atelectasis. IV antibiotics Follow up cultures Bronchodilators Incentive spirometry for atelectasis Continue atorvastatin Pain control Avoid oversedation Wound care. Monitor renal function. Monitor electrolytes. Supplement as necessary. Monitor ins and outs. Diet and lifestyle modifications for weight reduction Obesity complicates all care DVT prophylaxis. Prognosis: Poor given patient's multiple co-morbidities. Rest of plan per hospitalist and other consultants. Thank you, Dr. Danielle, for allowing me to participate in this patient's care. Further recommendations will depend on the patient's clinical course. Please do not hesitate to contact me if you have any questions or concerns. This medical document was created using an electronic medical record system with [employer] dictation system. Although these documentations are being carefully reviewed, there may still be some phonetic and typographical changes. The errors are purely typographical, due to imperfection on the software program, and do not reflect any compromise in the patient's medical care. Plan discussed with: Patient, Other (RN, MD) Date of Service: Nov 02, 2024 Billing Provider: BERNARDO AMOR MD Common Visit Codes: [id number] INP/OBS CARE(HIGH) BERNARDO AMOR MD Nov 03, 2024 08:15
== END 2024-11-02 16:21 | disposition home or self-care (01) | DRG 720 ==
LOC: ER 15:54 → OVERFLOW 10-28 02:22 → WEST WING 10-28 22:40
PROVIDERS: ADMIT Internal Medicine Geriatric Medicine; ATTEND Internal Medicine Geriatric Medicine
PROC: 0PB13ZX Excision of 1 to 2 Ribs, Percutaneous Approach, Diagnostic (ICD-10-PCS; principal; 2024-10-29)
DX: A41.9 Sepsis, unspecified organism (principal); J96.01 Acute respiratory failure with hypoxia; J15.69 Pneumonia due to other Gram-negative bacteria; C34.91 Malignant neoplasm of unspecified part of right bronchus or lung; J15.9 Unspecified bacterial pneumonia; J90 Pleural effusion, not elsewhere classified; K12.2 Cellulitis and abscess of mouth; J45.901 Unspecified asthma with (acute) exacerbation; J98.11 Atelectasis; Z20.822 Contact with and (suspected) exposure to COVID-19; E78.5 Hyperlipidemia, unspecified; E66.811 Obesity, class 1; R91.8 Other nonspecific abnormal finding of lung field; Z68.33 Body mass index [BMI] 33.0-33.9, adult
CPT/HCPCS: 10005; 36415; 36600; 71045; 71250; 71275; 77012; 80048; 80053; 81001; 82805; 83605; 83880; 84484; 85025; 85379; 87040; 87070; 87081; 87086; 87205; 87426; 87804; 87880; 93970; 94640; 96374; 99291; G0378; J1956; J2250; J3490